=== PATIENT | female | born 1965 | race Caucasian/White ===

== ENCOUNTER 2019-07-24 18:28 | Emergency (ER) | payer OTHER ==
[~2019-07-24] VITALS: Ht 172.7 cm; Wt 99.8 kg
--- OUTSIDE RECORDS SUMMARY | 2019-07-24 18:30 | XMS REPORT | Clinical Summary ---
Author Author [place] [facility] Organization [facility] [place] [facility] Address Unknown Phone Unavailable Care Team Providers Care Fountain Jerk Name Role Phone Theodore Avery MD PCP Allergies Comments Active Allergy Reactions Severity Noted Date Cefuroxime Axetil GI High 02/10/2019 Intolerance Tetracycline 08/18/2018 Medications End Date Status Medication Sig Dispensed Refills Start Date Active thyroid, pork, (ARMOUR Take 120 mg 0 THYROID) 120 mg tablet by mouth daily. Active citalopram (CeleXA) 40 MG Take 40 mg by 0 tablet mouth daily. Active rosuvastatin (CRESTOR) 10 Take 10 mg by 0 MG tablet mouth daily. Active ALPRAZolam (XANAX) 0.5 MG Take 0.5 mg 0 tablet by mouth nightly as needed for anxiety. Active budesonide-formoterol Inhale 2 0 (SYMBICORT) 160-4.5 puffs 2 (two) mcg/actuation inhaler times a day as needed. Active carisoprodol (SOMA) 350 Take 350 mg 0 MG tablet by mouth 4 (four) times a day as needed for muscle spasms. Active HYDROcodone-acetaminophen Take 1 tablet 0 (NORCO) 10-325 mg per by mouth tablet every 6 (six) hours as needed for moderate pain. Active Problems Problem Noted Date Small bowel obstruction 02/10/2019 Encounters Care Team Description Date Type Specialty 06/12/2019 Emergency Emergency Medicine Theodore Avery MD Screening for malignant neoplasm of breast (Primary Dx); Asymptomatic menopausal state 03/25/2019 Transcribe Access Orders Rachana Parkinson MD Abouelseoud, Tanseem Hamad Mohamed A, MD Bavare, Arusha Amod, MD Small bowel obstruction (HCC) (Primary Dx) 02/10/2019 [facility] General Internal Medicine - Encounter 02/13/2019 Anand Beckwith PA-C 08/18/2018 Hospital Radiology Encounter Anand Beckwith PA-C Chronic low back pain without sciatica, unspecified back pain laterality (Primary Dx); Degeneration of intervertebral disc of lumbar region; Spondylolisthesis of lumbar region 08/18/2018 Office Visit Orthopedic Surgery after 07/23/2018 Social History Date Tobacco Use Types Packs/Day Years Used Never Smoker Smokeless Tobacco: Never Used Drinks/Week oz/Week Comments Alcohol Use No Sex Assigned at Date Recorded Not on file Industry Job Start Date Occupation Not on file Not on file Not on file Travel End Travel History Travel Start No recent travel history available. Last Filed Vital Signs Reading Time Taken Comments Vital Sign 122/73 06/12/2019 5:37 PM CDT Blood Pressure 96 06/12/2019 5:37 PM CDT Pulse 36.6 C (97.8 F) 06/12/2019 5:37 PM CDT Temperature 18 06/12/2019 5:37 PM CDT Respiratory Rate 97% 06/12/2019 5:37 PM CDT Oxygen Saturation - - Inhaled Oxygen Concentration 113 kg (250 lb) 02/10/2019 12:52 AM CDT Weight 170.2 cm (5' 7") 06/12/2019 5:37 PM CDT Height 39.16 02/10/2019 12:52 AM CDT Body Mass Index Plan of Treatment Health Maintenance Due Date Last Done Comments CERVICAL CANCER SCREENING 1986 COLONOSCOPY SCREENING 2015 SHINGLES VACCINES (#1) 2015 INFLUENZA VACCINE 06/10/2019 BREAST CANCER SCREENING 03/26/2021 03/26/2019, 01/03/2017, 03/28/2015, Additional history exists Procedures Comments Procedure Name Priority Date/Time Associated Diagnosis MAMMO SCREENING W CAD Routine 03/26/2019 Screening for malignant BILATERAL 9:30 AM CDT neoplasm of breast Asymptomatic menopausal state BONE DENSITY Routine 03/26/2019 Screening for malignant 9:05 AM CDT neoplasm of breast Asymptomatic menopausal state FL UGI W AIR HD BA AND STAT 02/12/2019 SMALL BOWEL 1:46 PM CDT ESTIMATED GFR Routine 02/12/2019 5:22 AM CDT HC COMPLETE BLD COUNT Routine 02/12/2019 W/AUTO DIFF 5:22 AM CDT BASIC METABOLIC PANEL Routine 02/12/2019 5:22 AM CDT XR ABDOMEN ACUTE INC Routine 02/11/2019 CHEST 12:11 PM CDT ESTIMATED GFR Routine 02/11/2019 6:31 AM CDT PHOSPHORUS LEVEL Routine 02/11/2019 6:31 AM CDT MAGNESIUM LEVEL Routine 02/11/2019 6:31 AM CDT BASIC METABOLIC PANEL Routine 02/11/2019 6:31 AM CDT HC COMPLETE BLD COUNT Routine 02/11/2019 W/AUTO DIFF 6:31 AM CDT XR CHEST 1 VW PORTABLE STAT 02/10/2019 4:31 AM CDT HCG QUALITATIVE, URINE STAT 02/10/2019 SCREEN 2:53 AM CDT URINALYSIS SCREEN AND STAT 02/10/2019 MICROSCOPY, WITH REFLEX 2:53 AM CDT TO CULTURE URINE CULTURE STAT 02/10/2019 2:[address] ABDOMEN PELVIS W STAT 02/10/2019 CONTRAST 2:25 AM CDT ESTIMATED GFR STAT 02/10/2019 1:07 AM CDT LIPASE LEVEL STAT 02/10/2019 1:07 AM CDT COMPREHENSIVE METABOLIC STAT 02/10/2019 PANEL 1:07 AM CDT HC COMPLETE BLD COUNT STAT 02/10/2019 W/AUTO DIFF 1:07 AM CDT HEMOGLOBIN A1C Timed 02/10/2019 1:03 AM CDT after 07/23/2018 Results * Mammo Screening w Cad Bilateral (03/26/2019 9:30 AM CDT) Specimen Narrative Performed At PROCEDURE: MAMMO SCREENING W CAD BILATERAL [facility] Computer aided detection was utilized for the interpretation. COMPARISON: Prior studies dating back to 03/28/2015 DENSITY: There are scattered fibroglandular tissue. There is no evidence of new masses, architectural distortions or grouped calcifications. IMPRESSION:There is no evidence of malignancy. RECOMMENDATION: Annual mammography and correlation with physical examination BI-RADS 1: NEGATIVE [id number] Performing Organization Address City/State/Zipcode Phone Number [facility] [address] [place] [address] * Bone Density (03/26/2019 9:05 AM CDT) Specimen Narrative Performed At EXAMINATION:BONE DENSITY [facility] CLINICAL HISTORY:Z12.31 Encounter for screening mammogram for malignant neoplasm of breast, Z78.0 Asymptomatic menopausal state, ASYMPTOMATIC MENOPAUSAL STATE COMPARISON:None. The results of this study expressed as bone mineral density (BMD) were as follows: AP spine (L1-L4) BMD: 1.205 g/cm2 T-Score: 0.1 Dual Femur (Total Mean): BMD: 1.021 g/cm2 T-Score: 0.1 Impression: Bone mineral density values as above. [id number] A copy of this scans including a report detailing these results will follow. Note: The world health organization (WHO) has classified the patient's T-score as follows: Above (-1) as normal (-1) to (-2.5) as low (osteopenia) Below (-2.5) as abnormally low (osteoporosis, increased fracture risk) Dual femur FRAX: Risk factors: Family history of hip fracture. History of fracture as an adult 10 year probability of fracture: 1.Major osteoporotic: 17.2% 2.Hip:0.5% 3.Based on dual femur right) neck BMD [id number] Procedure Note Interface, Radiology Results Incoming - 03/26/2019 10:04 AM CDT EXAMINATION: BONE DENSITY CLINICAL HISTORY: Z12.31 Encounter for screening mammogram for malignant neoplasm of breast, Z78.0 Asymptomatic menopausal state, ASYMPTOMATIC MENOPAUSAL STATE COMPARISON: None. The results of this study expressed as bone mineral density (BMD) were as follows: AP spine (L1-L4) BMD: 1.205 g/cm2 T-Score: 0.1 Dual Femur (Total Mean): BMD: 1.021 g/cm2 T-Score: 0.1 Impression: Bone mineral density values as above. [id number] A copy of this scans including a report detailing these results will follow. Note: The world health organization (WHO) has classified the patient's T-score as follows: Above (-1) as normal (-1) to (-2.5) as low (osteopenia) Below (-2.5) as abnormally low (osteoporosis, increased fracture risk) Dual femur FRAX: Risk factors: Family history of hip fracture. History of fracture as an adult 10 year probability of fracture: 1. Major osteoporotic: 17.2% 2. Hip:0.5% 3. Based on dual femur right) neck BMD [facility]-[id number] Performing Organization Address City/State/Zipcode Phone Number [facility] [address] [place] [address] * FL UGI w Air HD BA and Small Bowel (02/12/2019 1:46 PM CDT) Specimen Narrative Performed At [facility] EXAMINATION:FL UGI W AIR HD BA AND SMALL BOWEL CLINICAL HISTORY:small bowel obstruction COMPARISON:CT from 02/10/2019 TECHNIQUE:UPPER GI SERIES AND SMALL BOWEL FOLLOW-THROUGH was performed with dilute Gastrografin FLUOROSCOPIC TIME:2.3 minutes NUMBER OF IMAGES: 23 FINDINGS: 1.Esophagus:Limited evaluation. Contrast is administered through the existing NG tube. 2.Gastroesophageal junction:Within normal limits 3.Stomach:Normally distensible and demonstrates normal contours and mucosal pattern. 4.Duodenum:Bulb and sweep are normal. The duodenal-jejunal junction is in the normal expected position. 5.Small bowel follow-through:Small bowel loops are normal in caliber and distribution. Spot compression views of the terminal ileum are normal. Transit time was normal. No small bowel obstruction. IMPRESSION: No bowel obstruction. Contrast is noted within the right colon at 45 minutes. [id number] Procedure Note Interface, Radiology Results Incoming - 02/12/2019 1:57 PM CDT EXAMINATION: FL UGI W AIR HD BA AND SMALL BOWEL CLINICAL HISTORY: small bowel obstruction COMPARISON: CT from 02/10/2019 TECHNIQUE: UPPER GI SERIES AND SMALL BOWEL FOLLOW-THROUGH was performed with dilute Gastrografin FLUOROSCOPIC TIME: 2.3 minutes NUMBER OF IMAGES: 23 FINDINGS: 1. Esophagus: Limited evaluation. Contrast is administered through the existing NG tube. 2. Gastroesophageal junction: Within normal limits 3. Stomach: Normally distensible and demonstrates normal contours and mucosal pattern. 4. Duodenum: Bulb and sweep are normal. The duodenal-jejunal junction is in the normal expected position. 5. Small bowel follow-through: Small bowel loops are normal in caliber and distribution. Spot compression views of the terminal ileum are normal. Transit time was normal. No small bowel obstruction. IMPRESSION: No bowel obstruction. Contrast is noted within the right colon at [address] [id number] Performing Organization Address City/[facility]/Zipcode Phone Number [facility] [address] [place] [address] * Estimated GFR (02/12/2019 5:22 AM CDT) Only the most recent of 3 results within the time period is included. Pathologist [facility] Estimated GFR >=90 mL/min/1.73 m2 [facility] Comment: [facility] G1 >=90 Normal or high G2 60-89Mildly decreased [id number] Mildly to moderately decreased [id number] Moderately to severely decreased G4 15-29Severely decreased G5 <15Kidney failure The eGFR was calculated using the Chronic Kidney Disease Epidemiology Collaboration (CKD-EPI) equation. Interpretation is based on recommendations of the National Kidney Foundation-Kidney Disease Outcomes Quality Initiative (NKF-KDOQI) published in 2014. Specimen Plasma specimen Performing Organization Address City/[facility]/Zipcode Phone Number [facility] DEPARTMENT OF [address] [facility] [facility] [place] [address] PATHOLOGY AND GENOMIC MEDICINE [facility] [address] [facility] [address] * CBC with platelet and differential (02/12/2019 5:22 AM CDT) Only the most recent of 3 results within the time period is included. Pathologist [facility] WBC 5.8 4.2 - 11.0 k/uL [facility] RBC 4.25 4.04 - 5.86 m/uL [facility] HGB 12.9 11.5 - 15.3 g/dL [facility] HCT 40.5 34.0 - 45.0 % [facility] MCV 95.3 80.0 - 98.0 fL [facility] MCH 30.4 27.0 - 34.0 pg [facility] MCHC 31.9 31.5 - 36.5 g/dL [facility] RDW - SD 48.1 37.0 - 51.0 fL [facility] MPV 10.5 (H) 7.4 - 10.4 fL [facility] Platelet count 214 150 - 400 k/uL [facility] Nucleated RBC 0.00 /100 WBC [facility] Neutrophils 40.2 36.0 - 66.0 % [facility] Lymphocytes 44.6 (H) 24.0 - 44.0 % [facility] Monocytes 9.4 (H) 0.0 - 6.0 % [facility] Eosinophils 4.7 0.0 - 6.0 % [facility] Basophils 0.9 0.0 - 1.2 % [facility] Immature 0.2 0.0 - 1.0 % [facility] granulocytes [facility] Specimen Blood Performing Organization Address City/State/Zipcode Phone Number [facility] DEPARTMENT OF [facility] [place] [id number] PATHOLOGY AND GENOMIC MEDICINE [address] * Basic metabolic panel (02/12/2019 5:22 AM CDT) Only the most recent of 2 results within the time period is included. Sodium 143 135 - 150 mEq/L [facility] Potassium 3.9 3.5 - 5.0 mEq/L [facility] Chloride 108 98 - 112 mEq/L [facility] CO2 27 24 - 31 mmol/L [facility] Anion gap 8@ANIO 7 - 15 mEq/L [facility] BUN 6 (L) 7 - 18 mg/dL [facility] Creatinine 0.60 0.50 - 0.90 mg/dL [facility] Glucose 120 (H) 65 - 100 mg/dL [facility] Calcium 9.0 8.3 - 10.2 mg/dL [facility] Specimen Plasma specimen Performing Organization Address City/State/Zipcode Phone Number [facility] DEPARTMENT OF [address] [place] [address] PATHOLOGY AND GENOMIC MEDICINE [facility] [address] [place], [place] [id number] [place] [address] * XR Abdomen Acute Inc Chest (02/11/2019 12:11 PM CDT) Specimen Narrative Performed At XR ABDOMEN ACUTE INC CHEST [facility] CLINICAL INDICATION:small bowel obstruction COMPARISON:02/10/2019 IMPRESSION: The lungs are clear. Heart and mediastinal contours are within normal limits. There is no active cardiopulmonary disease. A nasogastric tube is present coursing through the thorax, through the expected gastroesophageal junction, tip to the right of the midline overlying the region of the gastric pylorus. Bowel gas pattern is nonspecific with moderate stool through the colon. There are couple small bowel loops with air-fluid levels in the right lower quadrant suggesting stasis and/or potential focal inflammatory process. No significant differential air-fluid levels are identified to suggest high-grade small bowel obstruction. There is no free intraperitoneal air. No radiopaque calculi. Changes of lumbosacral fusion are noted incidentally. CONCLUSION: Nonspecific bowel gas pattern with mildly prominent fluid and gas in small bowel loops in the right lower quadrant as described. *[id number] Procedure Note Hm Interface, Radiology Results Incoming - 02/11/2019 12:48 PM CDT XR ABDOMEN ACUTE INC CHEST CLINICAL INDICATION: small bowel obstruction COMPARISON: 02/10/2019 IMPRESSION: The lungs are clear. Heart and mediastinal contours are within normal limits. There is no active cardiopulmonary disease. A nasogastric tube is present coursing through the thorax, through the expected gastroesophageal junction, tip to the right of the midline overlying the region of the gastric pylorus. Bowel gas pattern is nonspecific with moderate stool through the colon. There are couple small bowel loops with air-fluid levels in the right lower quadrant suggesting stasis and/or potential focal inflammatory process. No significant differential air-fluid levels are identified to suggest high-grade small bowel obstruction. There is no free intraperitoneal air. No radiopaque calculi. Changes of lumbosacral fusion are noted incidentally. CONCLUSION: Nonspecific bowel gas pattern with mildly prominent fluid and gas in small bowel loops in the right lower quadrant as described. *[id number] Performing Organization Address City/State/Zipcode Phone Number [facility] [address] [place] [address] * Phosphorus level (02/11/2019 6:31 AM CDT) Phosphorus 3.0 2.4 - 4.5 mg/dL [facility] Specimen Plasma specimen Performing Organization Address City/[facility]/Zipcode Phone Number [facility] DEPARTMENT OF [address] [place] [address] PATHOLOGY AND GENOMIC MEDICINE [address] * Magnesium level (02/11/2019 6:31 AM CDT) Magnesium 2.00 1.60 - 2.60 mg/dL [facility] Specimen Plasma specimen Performing Organization Address [facility] Phone Number [facility] DEPARTMENT OF [address] [place] [address] PATHOLOGY AND GENOMIC MEDICINE [address] * XR Chest 1 Vw Portable (02/10/2019 4:31 AM CDT) Specimen Narrative Performed At Examination:XR CHEST 1 VW PORTABLE [facility] Clinical History:Nasogastric tube placement Comparison: None. Technique: Single frontal view of the chest is obtained. Findings: Low lung volume with vascular crowding or congestion is noted. Tip NG tube is at the fundus near the cardia of the stomach. No pneumothorax is seen. The heart size is normal. No pleural effusion is seen. Impression: Low lung volume with vascular crowding or congestion. [facility]-[id number] Procedure Note Interface, Radiology Results Incoming - 02/10/2019 4:39 AM CDT Examination: XR CHEST 1 VW PORTABLE Clinical History: Nasogastric tube placement Comparison: None. Technique: Single frontal view of the chest is obtained. Findings: Low lung volume with vascular crowding or congestion is noted. Tip NG tube is at the fundus near the cardia of the stomach. No pneumothorax is seen. The heart size is normal. No pleural effusion is seen. Impression: Low lung volume with vascular crowding or congestion. [id number] Performing Organization Address City/State/Zipcode Phone Number [facility] [address] [place] [address] * Urinalysis screen and microscopy, with reflex to culture (02/10/2019 2:53 AM CDT) Specimen site Clean catch [facility] Color, UA Colorless [facility] Appearance, UA Clear [facility] Specific 1.024 1.001 - 1.035 [facility] gravity, [facility] pH, UA 9.0 (H) 5.0 - 8.5 [facility] Protein, UA Negative Negative [facility] Glucose, UA Negative Negative [facility] Ketones, UA Negative Negative [facility] Bilirubin, UA Negative Negative [facility] Blood, UA Negative Negative [facility] Nitrite, UA Negative Negative [facility] Urobilinogen, Negative <2.0 [facility] Leukocyte Negative Negative [facility] esterase, [facility] WBC, UA <1 0 - 5 /HPF [facility] RBC, UA None seen 0 - 5 /HPF [facility] Bacteria, UA None seen None seen [facility] Yeast, UA None seen [facility] Yeast with None seen [facility] Specimen Urine Performing Organization Address City/State/Zipcode Phone Number [facility] DEPARTMENT OF [facility] [place] [address] PATHOLOGY AND GENOMIC MEDICINE [place] [id number] [place], [place] [id number] [place] [address] * hCG qualitative, urine screen (02/10/2019 2:53 AM CDT) hCG Negative Negative [facility] qualitative, Comment: [facility] urine The manufacturers stated [facility] sensitivity of HcG test for HOSPITAL serum is >/=10 mIU/ml and urine is >/=20mIU/ml. Specimen Urine Performing Organization Address City/[facility]/Zipcode Phone Number [facility] DEPARTMENT OF [address] [place] [id number] PATHOLOGY AND GENOMIC MEDICINE [facility] [address] * Urine culture (02/10/2019 2:53 AM CDT) Urine culture SEE COMMENTComment: [facility] Bacteriuria screen negative. [facility] Specimen Urine Performing Organization Address City/[facility] Phone Number [facility] DEPARTMENT OF [address] [place] [id number] PATHOLOGY AND GENOMIC MEDICINE [facility] [address] * CT Abdomen Pelvis W Contrast (02/10/2019 2:25 AM CDT) Specimen Narrative Performed At Examination:CT ABDOMEN PELVIS W CONTRAST [facility] Clinical History: periumbilical painrule out small bowel obstruction Comparison: None. Findings: CT scans are performed using radiation dose reduction techniques.Technical factors are evaluated and adjusted to ensure appropriate moderation of exposure.Automated dose management technology is applied to adjust radiation exposure while achieving a diagnostic quality image. CT imaging was performed with iterative reconstruction techniques and/or automated exposure control to reduce radiation dose. CT scan of the abdomen and pelvis was performed after intravenous contrast. The liver, spleen, pancreas, gallbladder, and adrenal glands are unremarkable. The kidneys are within normal limits without hydronephrosis. Mildly prominent fluid-filled loops of small bowel are noted but measure only up to 2.3 cm. However the distal small bowel loops are decompressed. Transition point is in the pelvis at the mid to distal small bowel. Scattered colonic diverticuli are noted. No bowel thickening or fat stranding is seen. The appendix is visualized and unremarkable. No free air or is seen. Trace free fluid is noted in the pelvis. Urinary bladder is unremarkable. Small amount of subcutaneous fluid and fat stranding is seen posterior to the spine from the level of L3-L5. Bilateral pedicular screws are noted at L5 and S1. IMPRESSION: 1. Mildly prominent fluid-filled loops of small bowel but measures only up to 2.3 cm. However the distal small bowel loops are decompressed with transition point in the pelvis. This may represent early or partial small bowel obstruction. Follow-up study is recommended. 2. Small amount of subcutaneous fluid and fat stranding posterior to the spine from the level of L3-L5. This may related to postsurgical change. Superimposed infection cannot be excluded. Clinical correlation is recommended. [id number] Procedure Note Hm Interface, Radiology Results Incoming - 02/10/2019 2:35 AM CDT Examination: CT ABDOMEN PELVIS W CONTRAST Clinical History: periumbilical pain rule out small bowel obstruction Comparison: None. Findings: CT scans are performed using radiation dose reduction techniques. Technical factors are evaluated and adjusted to ensure appropriate moderation of exposure. Automated dose management technology is applied to adjust radiation exposure while achieving a diagnostic quality image. CT imaging was performed with iterative reconstruction techniques and/or automated exposure control to reduce radiation dose. CT scan of the abdomen and pelvis was performed after intravenous contrast. The liver, spleen, pancreas, gallbladder, and adrenal glands are unremarkable. The kidneys are within normal limits without hydronephrosis. Mildly prominent fluid-filled loops of small bowel are noted but measure only up to 2.3 cm. However the distal small bowel loops are decompressed. Transition point is in the pelvis at the mid to distal small bowel. Scattered colonic diverticuli are noted. No bowel thickening or fat stranding is seen. The appendix is visualized and unremarkable. No free air or is seen. Trace free fluid is noted in the pelvis. Urinary bladder is unremarkable. Small amount of subcutaneous fluid and fat stranding is seen posterior to the spine from the level of L3-L5. Bilateral pedicular screws are noted at L5 and S1. IMPRESSION: 1. Mildly prominent fluid-filled loops of small bowel but measures only up to 2.3 cm. However the distal small bowel loops are decompressed with transition point in the pelvis. This may represent early or partial small bowel obstruction. Follow-up study is recommended. 2. Small amount of subcutaneous fluid and fat stranding posterior to the spine from the level of L3-L5. This may related to postsurgical change. Superimposed infection cannot be excluded. Clinical correlation is recommended. [id number] Performing Organization Address City/State/Zipcode Phone Number [facility] [address] [place] [address] * Lipase level (02/10/2019 1:07 AM CDT) Lipase 13 13 - 60 U/L [facility] Specimen Plasma specimen Performing Organization Address City/State/Zipcode Phone Number [facility] [facility] DEPARTMENT OF [address] [place] [address] PATHOLOGY AND GENOMIC MED[facility] [address] * Comprehensive metabolic panel (02/10/2019 1:07 AM CDT) Sodium 138 135 - 150 mEq/L [facility] Potassium 4.1 3.5 - 5.0 mEq/L [facility] Chloride 102 98 - 112 mEq/L [facility] CO2 24 24 - 31 mmol/L [facility] Anion gap 12@ANIO 7 - 15 mEq/L [facility] BUN 10 7 - 18 mg/dL [facility] Creatinine 0.60 0.50 - 0.90 mg/dL [facility] Glucose 168 (H) 65 - 100 mg/dL [facility] Calcium 9.5 8.3 - 10.2 mg/dL [facility] Protein 7.2 6.3 - 8.3 g/dL [facility] Albumin 3.9 3.5 - 5.0 g/dL [facility] A/G ratio 1.2 0.7 - 3.8 [facility] Alkaline 67 0 - 104 U/L [facility] phosphatase [facility] AST 17 10 - 35 U/L [facility] ALT 14 5 - 50 U/L [facility] Total bilirubin 0.5 0.2 - 1.2 mg/dL [facility] Specimen Plasma specimen Performing Organization Address City/[facility]/Zipcode Phone Number [facility] DEPARTMENT OF [address] [place] [address] PATHOLOGY AND GENOMIC MEDICINE [facility] [address] * Hemoglobin A1c (02/10/2019 1:03 AM CDT) Hemoglobin A1C 5.7 (H) 4.0 - 5.6 % [facility] Comment: [facility] HbA1c cutoffs for diagnosing [facility] diabetes: HOSPITAL 4.0% - 5.6%=normal 5.7% - 6.4%=increased risk for diabetes (prediabetes) >=6.5%=diabetes Goals for glycemic control (ADA 2016) < 7.0%Target for non adults with diabetes. More or less stringent targets may be appropriate for individual patients. <7.5% Target for Children and adolescents with type 1 diabetes. Specimen Blood Performing Organization Address City/State/Zipcode Phone Number [facility] DEPARTMENT OF [address] [place] [address] PATHOLOGY AND GENOMIC MEDICINE [facility] [address] [place], [place] [id number] [place] [address] after 07/23/2018 Insurance Type Payer Benefit Subscriber ID Effective Phone Address Plan / Dates Group HMO AETNA AETNA xxxxxxxxxx 2018 HMO,POS,EP -Present O, MC/EC Advance Directives For more information, please contact: [phone] Patient Airconditioning Engineer Explanation Type Date Recorded Advance Directives, 02/10/2019 1:56 AM Living Will and Medical Power of Call Worker poa 02/12/19 Advance Directives, 02/15/2019 2:42 PM Living Will and Medical Power of Call Worker
--- OUTSIDE RECORDS SUMMARY | 2019-07-24 18:31 | XMS REPORT | Clinical Summary ---
Author Author MAGGIE [facility] Organization [facility] Address Unknown Phone Unavailable Care Team Providers Care Production Bow Maker Name Role Phone GenaJeovanyanalia Baptiste PCP Allergies Comments Active Allergy Reactions Severity Noted Date Cephalexin Hives Low 12/31/2018 "feels hot" Tetracycline Nausea Only, High 08/18/2018 Other (See Comments) Medications End Date Status Medication Sig Dispensed Refills Start Date Active ALPRAZolam (XANAX) 0.5 MG Take 0.5 mg 0 tablet by mouth every night as needed for Anxiety. Active citalopram (CELEXA) 40 MG Take 40 mg by 0 tablet mouth daily. Active cyclobenzaprine Take 10 mg by 0 (FLEXERIL) 10 MG tablet mouth nightly. Active dextroamphetamine-ampheta Take 25 mg by 0 mine (ADDERALL XR) 25 MG mouth every 24 hr capsule morning. Active esomeprazole (NEXIUM) 40 Take 40 mg by 0 MG capsule mouth daily. Active KRILL OIL ORAL Take by mouth 0 daily. Active LEVALBUTEROL HCL INHL Inhale 2 0 puffs by mouth via inhaler 4 (four) times daily as needed. Active mometasone (NASONEX) 50 2 sprays by 0 mcg/actuation nasal spray Nasal route daily. Active thyroid, pork, 120 mg Tab Take by mouth 0 daily. Active progesterone (PROMETRIUM) Take 100 mg 0 100 MG capsule by mouth nightly. Active rizatriptan (MAXALT) 10 Take 10 mg by 0 MG tablet mouth once as needed for Headaches Do NOT exceed thirty (30) mg in 24 hours. . Active rosuvastatin (CRESTOR) 10 Take 10 mg by 0 MG tablet mouth daily. Active budesonide-formoterol Inhale 2 0 (SYMBICORT) 160-4.5 puffs by mcg/actuation inhaler mouth via inhaler 2 (two) times daily. Active cholecalciferol, vitamin Take 5,000 0 D3, 5,000 unit Tab Units by mouth daily. Active cyanocobalamin (VITAMIN Take 5 30 tablet 1 B-12) 100 MCG tablet tablets (500 9 mcg total) by mouth daily. 06/13/2019 Discontinued celecoxib (CELEBREX) 200 Take 200 mg 0 MG capsule by mouth daily. 12/12/2018 Discontinued HYDROcodone-acetaminophen Take 1 tablet 0 (NORCO 10-325) 10-325 mg by mouth per tablet every 6 (six) hours as needed for Pain. 06/13/2019 Discontinued sucralfate (CARAFATE) 1 Take 1 g by 0 gram tablet mouth 4 (four) times daily. 12/22/2018 HYDROcodone-acetaminophen Take 1 tablet 30 tablet 0 (NORCO 10-325) 10-325 mg by mouth 9 per tablet every 6 (six) hours as needed for Pain for up to 10 days. Max Daily Amount: 4 tablets 01/02/2019 Discontinued HYDROcodone-acetaminophen Take 1 tablet 30 tablet 0 (NORCO 10-325) 10-325 mg by mouth 9 per tablet every 6 (six) hours as needed for Pain. Max Daily Amount: 4 tablets 06/15/2019 Discontinued carisoprodol (SOMA) 350 Take 350 mg 0 MG tablet by mouth 4 (four) times daily as needed for Muscle spasms. 01/12/2019 docusate sodium (COLACE) Take 1 20 capsule 0 100 MG capsule capsule (100 9 mg total) by mouth 2 (two) times daily for 10 days. 01/12/2019 levoFLOXacin (LEVAQUIN) Take 1.5 15 tablet 0 500 MG tablet tablets (750 9 mg total) by mouth daily for 10 days. Active Problems Problem Noted Date Leukocytosis 06/12/2019 Syncope 06/12/2019 Lower abdominal pain 06/12/2019 Colitis 06/12/2019 Morbid obesity with BMI of 40.0-44.9, adult 01/01/2019 Wound infection after surgery 12/31/2018 Wound dehiscence 12/31/2018 Lumbar spondylolysis 12/08/2018 Spondylolisthesis, grade 2 12/08/2018 Lumbar radiculopathy 12/08/2018 Morbid obesity with BMI of 40.0-44.9, adult 12/08/2018 S/P lumbar discectomy 12/08/2018 Resolved Problems Problem Noted Date Resolved Date Pre-op testing 12/08/2018 12/08/2018 Encounters Care Team Description Date Type Specialty Akosua Hassan, JR 06/15/2019 Anesthesia Gastroenterology Event Dre Saucedo MD COLONOSCOPY,BIOPSY 06/15/2019 Surgery Gastroenterology 06/13/2019 Travel Haley oBnner MD Arif, Sahar, MD Adio, MD Cristina Titus Shireen, MD Lower abdominal pain (Primary Dx); Fever, unspecified fever cause; LLQ abdominal pain; Syncope, unspecified syncope type; Acute colitis; Leukocytosis, unspecified type; Other elevated white blood cell (WBC) count; Bloody diarrhea; Colitis; Ischemic colitis (HCC) 06/12/2019 [facility] General Internal Medicine - Encounter 06/15/2019 06/12/2019 Orders Only General Internal Medicine [facility] MD S/P lumbar fusion 04/26/2019 Hospital Radiology Encounter [facility] MD S/P lumbar fusion (Primary Dx) 04/22/2019 Outside Orders Central Scheduling IgzoeaSarah Chinedum, [employer] S/P lumbar fusion 03/01/2019 Hospital Radiology Encounter IgwalaSarah Chinedum, [employer] S/P lumbar fusion (Primary Dx) 03/01/2019 Outside Orders Central Scheduling Aviva Redmond, JR 01/01/[address] MD DEBRIDEMENT/I&D,SPINE 01/01/[address] MD 12/31/2018 [facility] General Internal Medicine - Encounter 01/03/2019 12/31/2018 Travel Sarah Samum, [employer] Lumbar radiculopathy; Arthrodesis status 12/25/2018 Hospital Radiology Encounter IgzoeaSarahum, [employer] Lumbar radiculopathy (Primary Dx); Arthrodesis status 12/24/2018 Outside Orders Central Scheduling [facility] MD LAMINECTOMY,LUMBAR W/INTERNAL FIXATION 12/08/2018 Surgery Piyush Patino MD 12/08/[address] MD Pre-op testing 12/08/2018 [facility] General Internal Medicine - Encounter 12/12/[address] MD 11/26/2018 Hospital Cardiology Encounter [facility] MD Spondylolysis, lumbar region; Pre-op testing 11/26/2018 Hospital Pre-Admission Testing Encounter Neto Ellis MD 11/26/[address] MD Pre-op testing (Primary Dx); Spondylolysis, lumbar region 11/18/2018 Orders Only Family Medicine after 07/23/2018 Social History Date Tobacco Use Types Packs/Day Years Used Never Smoker Smokeless Tobacco: Never Used Alcohol Use Drinks/Week oz/Week Comments No Alcohol Habits Answer Date Recorded How often do you have a drink containing alcohol? Never 11/26/2018 How many drinks containing alcohol do you have on Not asked a typical day when you are drinking? How often do you have six or more drinks on one Not asked occasion? Sex Assigned at Date Recorded Not on file Industry Job Start Date Occupation Not on file Not on file Not on file Travel End Travel History Travel Start No recent travel history available. Last Filed Vital Signs Time Taken Vital Sign Reading 06/15/2019 12:10 PM CDT Blood Pressure 102/54 06/15/2019 12:10 PM CDT Pulse 77 06/15/2019 12:10 PM CDT Temperature 36.1 C (96.9 F) 06/15/2019 12:10 PM CDT Respiratory Rate 18 06/15/2019 12:10 PM CDT Oxygen Saturation 100% - Inhaled Oxygen - Concentration 06/12/2019 6:18 PM CDT Weight 107.5 kg (237 lb) 06/12/2019 6:18 PM CDT Height 170.2 cm (5' 7") 06/12/2019 6:18 PM CDT Body Mass Index 37.12 Plan of Treatment Not on file Implants Device Identifier Shelf Expiration Date Model / Serial / Lot Implanted Type Area Manufactur er 02/18/2020 8103.0210S / / [id number] Putty Xemplifi Dbm + 10cc Bone N/A: Spine GLOBUS MED [id number] - [id number] Lumbar Implanted: Qty: 1 on 12/08/[address] MD [id number] / / Scr Creo Thd 7.5x42mm 5119.1742 - Spine N/A: Spine GLOBUS MED [id number] Lumbar Implanted: Qty: 2 on 12/08/[address] MD [id number] / / Scr Creo Thd 7.5x45mm 5119.1747 - Spine N/A: Spine GLOBUS MED [id number] Lumbar Implanted: Qty: 2 on 12/08/[address] MD 1119.0010 / / Cap Creo Amp Kiko Threaded 1119.0010 Spine N/A: Spine GLOBUS MED - [id number] Lumbar Implanted: Qty: 4 on 12/08/[address] MD 193.121 / / Spacer Rise Bundle Wrapper 10x22 193.121 Spine N/A: Spine GLOBUS MED - [id number] Lumbar Implanted: Qty: 2 on 12/08/[address] MD [id number] / / 35mm Cocr Huy N/A: Spine GLOBUS Implanted: Qty: 2 on 12/08/[address]ICAL [address] MD Procedures Comments Procedure Name Priority Date/Time Associated Diagnosis REPORT OF PROCEDURE - 06/21/2019 ENDOSCOPY SCAN 12:58 PM CDT RHYTHM STRIP - SCAN 06/17/2019 2:55 PM CDT RHYTHM STRIP - SCAN 06/16/2019 11:00 AM CDT CBC W/PLT COUNT & AUTO STAT 06/15/2019 DIFFERENTIAL 11:21 AM CDT CBC W/PLT COUNT & AUTO STAT 06/15/2019 DIFFERENTIAL 11:21 AM CDT REPORT OF PROCEDURE - 06/15/2019 ENDOSCOPY URL 10:55 AM CDT TISSUE EXAM AP Routine 06/15/2019 10:47 AM CDT COLONOSCOPY,BIOPSY 06/15/2019 Gastrointestinal 10:00 AM CDT hemorrhage, unspecified gastrointestinal hemorrhage type PROTHROMBIN TIME/INR STAT 06/15/2019 8:18 AM CDT BASIC METABOLIC PANEL (7) STAT 06/15/2019 8:18 AM CDT CBC W/PLT COUNT & AUTO Routine 06/14/2019 DIFFERENTIAL 3:31 AM CDT BASIC METABOLIC PANEL (7) Routine 06/14/2019 3:31 AM CDT CBC W/PLT COUNT & AUTO Routine 06/14/2019 DIFFERENTIAL 3:31 AM CDT C-REACTIVE PROTEIN Routine 06/14/2019 3:31 AM CDT STOOL PATH CHARGE Routine 06/13/2019 9:39 AM CDT SHIGA TOXIN SCREEN Routine 06/13/2019 9:39 AM CDT C. DIFFICILE GDH TOXIN Routine 06/13/2019 9:39 AM CDT STOOL CULTURE + SHIGA Routine 06/13/2019 TOXIN 9:39 AM CDT VITAMIN B12 AND FOLATE Routine 06/13/2019 5:01 AM CDT TSH/FREE T4 IF INDICATED Routine 06/13/2019 5:01 AM CDT COMPREHENSIVE METABOLIC Routine 06/13/2019 PANEL 5:01 AM CDT CBC (HEMOGRAM ONLY) Routine 06/13/2019 5:01 AM CDT CREATINE KINASE (CK) STAT 06/12/2019 11:50 PM CDT TROPONIN I STAT 06/12/2019 11:[address] ABDOMEN/PELVIS WITH IV STAT 06/12/2019 CONTRAST 10:02 PM CDT URINALYSIS W/ REFLEX STAT 06/12/2019 URINE CULTURE 9:40 PM CDT POCT-LACTIC ACID, VENOUS Routine 06/12/2019 7:11 PM CDT ECG 12-LEAD Routine 06/12/2019 7:09 PM CDT Procedure Note - Interface, External Ris In - 06/12/2019 8:32 PM CDT Ventricula r Rate 73 BPM Atrial Rate 73 BPM P-R Interval 108 ms QRS Duration 72 ms Q-T Interval 426 ms QTC Calculatio n(Bazett) 469 ms P Frederick -4 degrees R Frederick 8 degrees T Frederick 13 degrees Sinus rhythm with short AL Minimal voltage criteria for LVH, may be normal variant Borderline ECG No previous ECGs available ECG 12-LEAD STAT 06/12/2019 7:09 PM CDT BLOOD GAS, VENOUS STAT 06/12/2019 7:09 PM CDT BLOOD CULTURE STAT 06/12/2019 7:09 PM CDT BLOOD CULTURE STAT 06/12/2019 7:09 PM CDT CBC W/PLT COUNT & AUTO STAT 06/12/2019 DIFFERENTIAL 6:55 PM CDT PT/APTT STAT 06/12/2019 6:55 PM CDT BASIC METABOLIC PANEL (7) STAT 06/12/2019 6:55 PM CDT HEPATIC FUNCTION PANEL STAT 06/12/2019 6:55 PM CDT PHOSPHORUS STAT 06/12/2019 6:55 PM CDT MAGNESIUM STAT 06/12/2019 6:55 PM CDT LIPASE STAT 06/12/2019 6:55 PM CDT CBC W/PLT COUNT & AUTO STAT 06/12/2019 DIFFERENTIAL 6:55 PM CDT ED ECG INTERPRETATION Routine 06/12/2019 6:[address] SPINE LUMBAR WITHOUT Routine 04/26/2019 S/P lumbar fusion IV CONTRAST 10:00 AM CDT XR SPINE LUMBER 2 OR 3 Routine 03/01/2019 S/P lumbar fusion VIEWS 10:18 AM CDT CBC W/PLT COUNT & AUTO Routine 01/03/2019 DIFFERENTIAL 6:25 AM DEVIL TENDER BASIC METABOLIC PANEL (7) Routine 01/03/2019 6:25 AM DEVIL TENDER CBC W/PLT COUNT & AUTO Routine 01/03/2019 DIFFERENTIAL 6:25 AM DEVIL TENDER TRANSFUSION SERVICE 01/02/2019 REPORT - SCAN 6:01 PM DEVIL TENDER CBC W/PLT COUNT & AUTO Routine 01/02/2019 DIFFERENTIAL 3:52 AM DEVIL TENDER BASIC METABOLIC PANEL (7) Routine 01/02/2019 3:52 AM DEVIL TENDER CBC W/PLT COUNT & AUTO Routine 01/02/2019 DIFFERENTIAL 3:52 AM DEVIL TENDER TRANSFUSION SERVICE 01/01/2019 REPORT - SCAN 6:01 PM DEVIL TENDER TISSUE EXAM AP Routine 01/01/2019 3:55 PM DEVIL TENDER SURGICALLY OBTAINED Routine 01/01/2019 CULTURE + GRAM STAIN 3:42 PM DEVIL TENDER FUNGUS CULTURE + SMEAR Routine 01/01/2019 3:42 PM DEVIL TENDER ANAEROBIC CULTURE Routine 01/01/2019 3:42 PM DEVIL TENDER AFB CULTURE + SMEAR Routine 01/01/2019 3:42 PM DEVIL TENDER RELEASE,SCAR CONTRACTURE 01/01/2019 Wound dehiscence TRUNK 1:55 PM DEVIL TENDER Case Notes 1 HR Special Needs (PRONE POSITION, MALOU TABLE, PULSE LAVAGE IRRIGATION ) CLOSURE,WOUND TORSO 01/01/2019 Wound dehiscence POSTERIOR 1:55 PM DEVIL TENDER Case Notes 1 HR Special Needs (PRONE POSITION, MALOU TABLE, PULSE LAVAGE IRRIGATION ) DEBRIDEMENT/I&D,SPINE 01/01/2019 Wound dehiscence 1:55 PM DEVIL TENDER Case Notes 1 HR Special Needs (PRONE POSITION, MALOU TABLE, PULSE LAVAGE IRRIGATION ) BLOOD CULTURE Routine 12/31/2018 11:53 PM DEVIL TENDER URINALYSIS W/ REFLEX Routine 12/31/2018 URINE CULTURE 11:12 PM DEVIL TENDER CBC W/PLT COUNT & AUTO YAYA 12/31/2018 DIFFERENTIAL 11:10 PM DEVIL TENDER TYPE AND SCREEN, Routine 12/31/2018 AUTOMATED 11:10 PM DEVIL TENDER C-REACTIVE PROTEIN YAYA 12/31/2018 11:10 PM DEVIL TENDER PT/APTT YAYA 12/31/2018 11:10 PM DEVIL TENDER PHOSPHORUS YAYA 12/31/2018 11:10 PM DEVIL TENDER MAGNESIUM YAYA 12/31/2018 11:10 PM DEVIL TENDER BASIC METABOLIC PANEL (7) YAYA 12/31/2018 11:10 PM DEVIL TENDER CBC W/PLT COUNT & AUTO YAYA 12/31/2018 DIFFERENTIAL 11:10 PM DEVIL TENDER BLOOD CULTURE Routine 12/31/2018 11:[address] SPINE LUMBAR WITHOUT STAT 12/31/2018 IV CONTRAST 9:12 PM DEVIL TENDER RHYTHM STRIP - SCAN 12/28/2018 10:[address] SPINE LUMBAR WITHOUT Routine 12/25/2018 Lumbar radiculopathy IV CONTRAST 8:10 AM DEVIL TENDER Arthrodesis status BASIC METABOLIC PANEL (7) Routine 12/12/2018 5:12 AM DEVIL TENDER CBC W/PLT COUNT & AUTO Routine 12/11/2018 DIFFERENTIAL 5:19 AM DEVIL TENDER BASIC METABOLIC PANEL (7) Routine 12/11/2018 5:19 AM DEVIL TENDER CBC W/PLT COUNT & AUTO Routine 12/11/2018 DIFFERENTIAL 5:19 AM DEVIL TENDER CBC W/PLT COUNT & AUTO Routine 12/10/2018 DIFFERENTIAL 6:17 AM DEVIL TENDER BASIC METABOLIC PANEL (7) Routine 12/10/2018 6:17 AM DEVIL TENDER CBC W/PLT COUNT & AUTO Routine 12/10/2018 DIFFERENTIAL 6:17 AM DEVIL TENDER XR SPINE LUMBER 2 OR 3 Routine 12/09/2018 VIEWS 9:39 PM DEVIL TENDER TRANSFUSION SERVICE 12/09/2018 REPORT - SCAN 5:51 PM DEVIL TENDER CBC (HEMOGRAM ONLY) Routine 12/09/2018 5:09 AM DEVIL TENDER BASIC METABOLIC PANEL (7) Routine 12/09/2018 5:09 AM DEVIL TENDER NEEDLE EMG, 2 EXTREMITY Routine 12/08/2018 3:00 PM DEVIL TENDER FL FOOD SUPERVISOR IN OR 30 Routine 12/08/2018 MINUTE INCREMENTS 2:45 PM DEVIL TENDER TISSUE EXAM AP Routine 12/08/2018 2:11 PM DEVIL TENDER FL FOOD SUPERVISOR IN OR 30 Routine 12/08/2018 MINUTE INCREMENTS 12:43 PM DEVIL TENDER LAMINECTOMY,LUMBAR 12/08/2018 Spondylolysis, lumbar W/INTERNAL FIXATION 11:30 AM DEVIL TENDER region Case Notes 3 HRS PER FAX Special Needs (SUPINE POSITION, C-ARM, FLATTOP TABLE, GLOBUS) PROCEDURE W/ C-ARM 12/08/2018 Spondylolysis, lumbar 11:30 AM DEVIL TENDER region Case Notes 3 HRS PER FAX Special Needs (SUPINE POSITION, C-ARM, FLATTOP TABLE, GLOBUS) URINALYSIS W/ REFLEX Routine 12/08/2018 Pre-op testing URINE CULTURE 10:50 AM DEVIL TENDER ABORH, MANUAL Routine 12/08/2018 10:48 AM DEVIL TENDER CBC W/PLT COUNT & AUTO Routine 12/08/2018 Pre-op testing DIFFERENTIAL 10:40 AM DEVIL TENDER CBC W/PLT COUNT & AUTO Routine 12/08/2018 Pre-op testing DIFFERENTIAL 10:40 AM DEVIL TENDER BASIC METABOLIC PANEL (7) Routine 12/08/2018 Pre-op testing 10:40 AM DEVIL TENDER TRANSFUSION SERVICE 11/27/2018 REPORT - SCAN 5:53 PM DEVIL TENDER XR CHEST 2 VIEWS Routine 11/26/2018 Spondylolysis, lumbar 12:31 PM DEVIL TENDER region TYPE AND SCREEN, Routine 11/26/2018 Pre-op testing AUTOMATED 12:06 PM DEVIL TENDER PROTHROMBIN TIME/INR Routine 11/26/2018 Pre-op testing 12:06 PM DEVIL TENDER APTT Routine 11/26/2018 Pre-op testing 12:06 PM DEVIL TENDER after 07/23/2018 Results * EKG-SCANNED (06/21/2019 12:58 PM CDT) Narrative Performed At * RHYTHM STRIP - SCAN (06/17/2019 2:55 PM CDT) Only the most recent of 3 results within the time period is included. Narrative Performed At * CBC with platelet count + automated diff (06/15/2019 11:21 AM CDT) Only the most recent of 9 results within the time period is included. WBC 7.0 3.5 - 10.5 K/L [facility] RBC 4.46 3.93 - 5.22 M/L [facility] Hemoglobin 13.5 11.2 - 15.7 GM/DL [facility] Hematocrit 42.3 34.1 - 44.9 % [facility] MCV 94.8 79.4 - 94.8 fL [facility] MCH 30.3 25.6 - 32.2 pg [facility] MCHC 31.9 (L) 32.2 - 35.5 GM/DL [facility] RDW 14.6 (H) 11.7 - 14.4 % [facility] Platelets 192 150 - 450 K/CU MM [facility] MPV 10.9 9.4 - 12.3 fL [facility] nRBC 0 0 - 0 /100 WBC [facility] % Neutros 53 % [facility] % Lymphs 32 % [facility] % Monos 9 % [facility] % Eos 5 % [facility] % Baso 1 % [facility] # Neutros 3.71 1.56 - 6.13 K/L [facility] # Lymphs 2.24 1.18 - 3.74 K/L [facility] # Monos 0.64 (H) 0.24 - 0.36 K/L [facility] # Eos 0.37 (H) 0.04 - 0.36 K/L [facility] # Baso 0.05 0.01 - 0.08 K/L [facility] Immature 0 0 - 1 % [facility] Granulocytes-Relative [facility] Specimen Blood Performing Organization Address City/State/Zipcode Phone Number [facility] [address] [place] [address] [facility] * REPORT OF PROCEDURE - ENDOSCOPY URL (06/15/2019 10:55 AM CDT) Narrative Performed At * Tissue Exam (06/15/2019 10:47 AM CDT) Only the most recent of 3 results within the time period is included. Case Report Surgical Pathology [facility] Report [facility] Case: [id number] Authorizing Provider:Dre Saucedo MDCollecte d: 06/15/2019 1047 Ordering Location: [address] Received: 06/16/2019 0829 Service Pathologist: Hodan Pettit MD Specimen:Large Intestine, Colon - Rectosigmoid, biopsy DIAGNOSIS RECTOSIGMOID COLON, BIOPSY: [facility] - CONSISTENT WITH HISTORY [facility] OF ISCHEMIC COLITIS CC/pl Signing Pathologist Direct Phone Line: [phone] CPT Code(s) 94851 [facility] CLINICAL HISTORY Pre and postop diagnosis: [facility] gastrointestinal hemorrhage, [facility] unspecified gastrointestinal hemorrhage type SPECIMEN SOURCE Large intestine, colon - [facility] rectosigmoid biopsy [facility] GROSS DESCRIPTION Received in formalin labeled [facility] with the patient's name, [facility] accession number and "large intestine, colon - rectosigmoid" are two irregular eaton soft tissue fragments measuring 0.3 cm and 0.2 cm which are submitted in toto in A1. CG/pl MICROSCOPIC DESCRIPTION The rectosigmoid colon biopsy [facility] consists of multiple pieces of [facility] colonic mucosa with reactive surface epithelium, wethered glands with focal acute inflammation, lamina propria hyalinization, fibrosis, chronic inflammation and reactive/regenerative crypts. The finding is consistent with ischemic colitis. No dysplasia is seen. Specimen Tissue Performing Organization Address [facility] Phone Number [facility] [address] [place] [phone] [facility] * Prothrombin time/INR (06/15/2019 8:18 AM CDT) Only the most recent of 2 results within the time period is included. Protime 13.9 11.9 - 14.2 seconds [facility] INR 1.1 <=5.9 [facility] Specimen Blood Narrative Performed At Effective 04/07/2019: PT Reference Range Change [facility] New: 11.9-14.2Previous: 11.7-14.7 [facility] RECOMMENDED COUMADIN/WARFARIN INR THERAPY RANGES STANDARD DOSE: 2.0-3.0Includes: PROPHYLAXIS for venous thrombosis, systemic embolization; TREATMENT for venous thrombosis and/or pulmonary embolus. HIGH RISK: Target INR is 2.5-3.5 for patients wiht mechanical heart valves. Performing Organization Address City/[facility]/Zipcode Phone Number [facility] [address] [place] [address] [facility] * Basic Metabolic Panel (06/15/2019 8:18 AM CDT) Only the most recent of 11 results within the time period is included. Sodium 138 136 - 145 meq/L [facility] Potassium 3.8Comment: Specimen slightly 3.5 - 5.1 meq/L [facility] hemolyzed [facility] Chloride 110 (H) 98 - 107 meq/L [facility] CO2 22 22 - 29 meq/L [facility] BUN 3 (L) 7 - 21 mg/dL [facility] Creatinine 0.61Comment: Specimen slightly 0.57 - 1.25 mg/dL [facility] hemolyzed [facility] Glucose 90 70 - 105 mg/dL [facility] Calcium 8.3 (L) 8.4 - 10.2 mg/dL [facility] EGFR 103Comment: ESTIMATED GFR IS mL/min/1.73 sq m [facility] NOT ACCURATE CREATININE [facility] CLEARANCE IN PREDICTING GLOMERULAR FILTRATION RATE. ESTIMATED GFR IS NOT APPLICABLE FOR DIALYSIS PATIENTS. Specimen Blood Performing Organization Address City/[facility] [place] Phone Number [address] [address] [facility] * C-Reactive Protein (06/14/2019 3:31 AM CDT) Only the most recent of 2 results within the time period is included. CRP 3.72 (H) 0.00 - 0.50 mg/dL [facility] Specimen Blood Performing Organization Address [facility] [place] Phone Number [address] [address] [phone] [place] [address] * Clostridium difficile [facility] Toxin (06/13/2019 9:39 AM CDT) C. Difficle Toxin Negative Negative [facility] C. Difficile [facility] Antigen NegativeComment: No indication Negative [facility] of Clostridium difficile [facility] infection and no colonization. Discontinue enteric isolation and therapy. Specimen Stool Narrative Performed At Testing performed by [employer] Rapid Cassette Assay.For [facility], published [facility] sensitivity of the assay is 98.7% compared to cytotoxicity testing.For Toxin [facility] AB, published sensitivity is 87.8% and specificity 99.4% compared to cytotoxicity testing. Verification of kit performance was done by the [facility] Microbiology Lab prior to clinical use. Performing Organization Address City/[facility] Cent[facility]ode Phone Number [address] [phone] [facility] * STOOL PATH CHARGE (06/13/2019 9:39 AM CDT) Pathogen exam charged Done [facility] Specimen Stool Performing Organization Address City/[facility] Centercode Phone Number [address] [address] [facility] * Shiga Toxin Screen (06/13/2019 9:39 AM CDT) Shiga toxin 1 Not detected Not detected [facility] Shiga toxin 2 Not detected Not detected [facility] Specimen Stool Performing Organization Address [facility] Centercode Phone Number [address] [address] [phone] [place] [address] * Stool culture + Shiga toxin (06/13/2019 9:39 AM CDT) Result No Salmonella, Shigella or [facility] Campylobacter [facility] Specimen Stool Performing Organization Address City/[facility] Cent[facility]ode Phone Number [address] [address] [phone] [place] [address] * Vitamin B12 and Folate (06/13/2019 5:01 AM CDT) Vitamin B12 266 213 - 816 pg/mL [facility] Folate 10.2 >=7.0 ng/mL [facility] Specimen Blood Performing Organization Address City/[facility]/Zipcode Phone Number [address] [address] [facility] * TSH/Free T4 If Indicated (06/13/2019 5:01 AM CDT) TSH 3.07 0.35 - 4.94 uIU/mL [facility] Specimen Blood Performing Organization Address City/[facility]/Zipcode Phone Number [address] [address] [facility] * CBC (Hemogram only) (06/13/2019 5:01 AM CDT) Only the most recent of 2 results within the time period is included. WBC 11.2 (H) 3.5 - 10.5 K/L [facility] RBC 4.55 3.93 - 5.22 M/L [facility] Hemoglobin 13.8 11.2 - 15.7 GM/DL [facility] Hematocrit 41.7 34.1 - 44.9 % [facility] MCV 91.6 79.4 - 94.8 fL [facility] MCH 30.3 25.6 - 32.2 pg [facility] MCHC 33.1 32.2 - 35.5 GM/DL [facility] RDW 14.5 (H) 11.7 - 14.4 % [facility] Platelets 134 (L) 150 - 450 K/CU MM [facility] MPV 11.5 9.4 - 12.3 fL [facility] nRBC 0 0 - 0 /100 WBC [facility] Specimen Blood Performing Organization Address City/State/Zipcode Phone Number [facility] [address] [place] [address] [facility] * Comprehensive metabolic panel (06/13/2019 5:01 AM CDT) Protein, Total 5.9 (L) 6.0 - 8.3 gm/dL [facility] Albumin 3.6 3.5 - 5.0 g/dL [facility] Alkaline Phosphatase 57 40 - 150 U/L [facility] Total Bilirubin 1.2 0.2 - 1.2 mg/dL [facility] Sodium 137 136 - 145 meq/L [facility] Potassium 3.5 3.5 - 5.1 meq/L [facility] Chloride 109 (H) 98 - 107 meq/L [facility] CO2 22 22 - 29 meq/L [facility] BUN 8 7 - 21 mg/dL [facility] Creatinine 0.67 0.57 - 1.25 mg/dL [facility] Glucose 95 70 - 105 mg/dL [facility] Calcium 8.2 (L) 8.4 - 10.2 mg/dL [facility] AST 16 5 - 34 U/L [facility] ALT 14 6 - 55 U/L [facility] EGFR 92Comment: ESTIMATED GFR IS mL/min/1.73 sq m [facility] NOT ACCURATE CREATININE [facility] CLEARANCE IN PREDICTING GLOMERULAR FILTRATION RATE. ESTIMATED GFR IS NOT APPLICABLE FOR DIALYSIS PATIENTS. Specimen Blood Performing Organization Address City/[facility] Cent[facility]ode Phone Number [address] [address] [facility] * Troponin I (not available at [facility] [place]) (06/12/2019 11:50 PM CDT) Troponin I 0.01 0.00 - 0.03 ng/mL [facility] Specimen Blood Narrative Performed At Troponin I (TnI) levels must be interpreted in the context of the presenting [facility] symptoms and the clinical findings. Elevated TnI levels indicate myocardial [facility] damage, but are not specific for ischemic heart disease. Elevated TnI levels are seen in patients with other cardiac conditions (including myocarditis and congestive heart failure), and slight TnI elevations occur in patients with other conditions, including sepsis, renal failure, acidosis, acute neurological disease, and persistent tachyarrhythmia. Performing Organization Address City/[facility] Centercode Phone Number [place] [phone] [place], [place] [id number] [facility] * Creatine Kinase (CK) (06/12/2019 11:50 PM CDT) Total CK 63 29 - 200 U/L [facility] Specimen Blood Performing Organization Address City/State/Zipcode Phone Number [facility] [address] [place] [address] [facility] [address] * CT abdomen pelvis with IV contrast (06/12/2019 10:02 PM CDT) Specimen Narrative Performed At FINAL REPORT [facility] TECHNIQUE: CT of the abdomen WITH intravenous contrast and WITH oral contrast. Dose modulation, iterative reconstruction, and/or weight-based adjustment of the mA/kV was utilized to reduce the radiation dose to as low as reasonably achievable. INDICATION: Left lower quadrant pain. COMPARISON: None. FINDINGS: LOWER THORAX: Unremarkable. HEPATOBILIARY: No focal hepatic lesions. Gallbladder is unremarkable. No biliary ductal dilatation. SPLEEN: No splenomegaly. PANCREAS: No focal masses or ductal dilatation. ADRENALS: No adrenal nodules. KIDNEYS/URETERS: No hydronephrosis, stones, or solid mass lesions. PERITONEUM/RETROPERITONEUM: No free air or fluid. LYMPH NODES: No lymphadenopathy. VESSELS: Unremarkable. GI TRACT: No bowel distention. Moderately thickened edematous wall of the ascending colon with mild pericolonic fat stranding. There are a few sigmoid diverticula without associated inflammation. Normal appendix. BONES AND SOFT TISSUES: Prior L5-S1 fusion with instrumentation. Grade 1 anterolisthesis of L5 on S1. No acute osseous abnormality. IMPRESSION: 1. Thickened edematous wall of the descending colon with pericolonic stranding consistent with acute colitis, possibly of infectious or inflammatory etiology. 2. Few sigmoid diverticula without associated inflammation. Signed: Vivian Cho MD Report Verified Date/Time:06/12/2019 22:36:43 Reading Location: [address] Transitional Reading Room Procedure Note Interface, External Ris In - 06/12/2019 10:38 PM CDT FINAL REPORT TECHNIQUE: CT of the abdomen WITH intravenous contrast and WITH oral contrast. Dose modulation, iterative reconstruction, and/or weight-based adjustment of the mA/kV was utilized to reduce the radiation dose to as low as reasonably achievable. INDICATION: Left lower quadrant pain. COMPARISON: None. FINDINGS: LOWER THORAX: Unremarkable. HEPATOBILIARY: No focal hepatic lesions. Gallbladder is unremarkable. No biliary ductal dilatation. SPLEEN: No splenomegaly. PANCREAS: No focal masses or ductal dilatation. ADRENALS: No adrenal nodules. KIDNEYS/URETERS: No hydronephrosis, stones, or solid mass lesions. PERITONEUM/RETROPERITONEUM: No free air or fluid. LYMPH NODES: No lymphadenopathy. VESSELS: Unremarkable. GI TRACT: No bowel distention. Moderately thickened edematous wall of the ascending colon with mild pericolonic fat stranding. There are a few sigmoid diverticula without associated inflammation. Normal appendix. BONES AND SOFT TISSUES: Prior L5-S1 fusion with instrumentation. Grade 1 anterolisthesis of L5 on S1. No acute osseous abnormality. IMPRESSION: 1. Thickened edematous wall of the descending colon with pericolonic stranding consistent with acute colitis, possibly of infectious or inflammatory etiology. 2. Few sigmoid diverticula without associated inflammation. Signed: Vivian Cho MD Report Verified Date/Time: 06/12/2019 22:36:43 Reading Location: [address] Transitional Reading Room Performing Organization Address City/State/Zipcode Phone Number [facility] * Urinalysis w/Microscopic + Reflex to Culture (06/12/2019 9:40 PM CDT) Only the most recent of 3 results within the time period is included. Color, UA Yellow [facility] Clarity, UA Clear [facility] Specific [place], UA 1.008 1.001 - 1.035 [facility] pH, UA 6.0 5.0 - 8.0 [facility] Protein, UA Negative Negative [facility] Glucose, UA Negative Negative [facility] Ketones, UA 20 mg/dL (A) Negative [facility] Bilirubin, UA Negative Negative [facility] Blood, UA Negative Negative [facility] Nitrite, UA Negative Negative [facility] Leukocytes, UA Negative Negative [facility] Urobilinogen, UA 0.2 0.2 - 1.0 mg/dL [facility] RBC, UA 3 /HPF [facility] WBC, UA 2 /HPF [facility] Mucus Many [facility] Squam Epithel, UA 2 /HPF [facility] Specimen Source [facility] Specimen Urine Performing Organization Address [facility] Centercomi Phone Number [address] [phone] [facility] * POC-Lactic Acid, Venous (06/12/2019 7:11 PM CDT) POC-Lactic Acid, Venous 1.9 (H)Comment: TESTED AT 0.9 - 1.7 mmol/L [address] [address] Specimen Blood Performing Organization Address City/[facility] Centercomi Phone Number [address] [phone] [facility] * ECG 12 lead (06/12/2019 7:09 PM CDT) Specimen Narrative Performed At Ventricular Rate 73 BPM [facility] Atrial Rate 73 BPM P-R Interval 108 ms QRS Duration 72 ms Q-T Interval 426 ms QTC Calculation(Bazett) 469 ms P Frederick -4 degrees R Frederick 8 degrees T Frederick 13 degrees Sinus rhythm with short AL Minimal voltage criteria for LVH, may be normal variant Borderline ECG No previous ECGs available Confirmed by MD LEESA, LUCIA ([id number]) on 06/13/2019 10:31:01 AM Procedure Note Interface, External Ris In - 06/13/2019 10:31 AM CDT Ventricular Rate 73 BPM Atrial Rate 73 BPM P-R Interval 108 ms QRS Duration 72 ms Q-T Interval 426 ms QTC Calculation(Bazett) 469 ms P Frederick -4 degrees R Frederick 8 degrees T Frederick 13 degrees Sinus rhythm with short AL Minimal voltage criteria for LVH, may be normal variant Borderline ECG No previous ECGs available Confirmed by MD LEESA, LUCIA ([id number]) on 06/13/2019 10:31:01 AM Performing Organization Address City/State/Zipcode Phone Number [facility] * Blood Culture - Routine (Left Venipuncture) (06/12/2019 7:09 PM CDT) Only the most recent of 4 results within the time period is included. Result No growth in 5 days [facility] Specimen Blood Performing Organization Address City/[facility] Cent[facility]ode Phone Number [address] [address] [facility] * Blood gas, venous (06/12/2019 7:09 PM CDT) pH, Jose Daniel 7.34 7.32 - 7.42 [facility] pCO2, Jose Daniel 50 41 - 51 mmHg [facility] pO2, Jose Daniel 26 25 - 40 mmHg [facility] O2 Sat, Jose Daniel 43.9 40.0 - 70.0 % [facility] HCO3, Jose Daniel 27 21 - 29 mmol/L [facility] Base Excess, Jose Daniel 0.0 -2.0 - 3.0 mmol/L [facility] Patient Temperature 37.0 C [facility] Specimen Blood Performing Organization Address [facility] Centercode Phone Number [facility] [address] [place] [address] [facility] * PT/aPTT (06/12/2019 6:55 PM CDT) Only the most recent of 2 results within the time period is included. Protime 12.8 11.9 - 14.2 seconds [facility] INR 1.0 <=5.9 [facility] PTT 29.6 22.5 - 36.0 seconds [facility] Specimen Blood Narrative Performed At Effective 04/07/2019: PT Reference Range Change [facility] New: 11.9-14.2Previous: 11.7-14.7 [facility] RECOMMENDED COUMADIN/WARFARIN INR THERAPY RANGES STANDARD DOSE: 2.0-3.0Includes: PROPHYLAXIS for venous thrombosis, systemic embolization; TREATMENT for venous thrombosis and/or pulmonary embolus. HIGH RISK: Target INR is 2.5-3.5 for patients wiht mechanical heart valves. Performing Organization Address City/[facility] Centercomi Phone Number [address] * Phosphorus (06/12/2019 6:55 PM CDT) Only the most recent of 2 results within the time period is included. Phosphorus 2.5Comment: Specimen markedly 2.3 - 4.7 mg/dL [facility] Specimen Blood Performing Organization Address [facility] Phone Number [address] * Magnesium (06/12/2019 6:55 PM CDT) Only the most recent of 2 results within the time period is included. Magnesium 1.9Comment: Specimen markedly 1.6 - 2.6 mg/dL [facility] Specimen Blood Performing Organization Address [facility] Phone Number [address] * Lipase (06/12/2019 6:55 PM CDT) Lipase 19 8 - 78 U/L [facility] Specimen Blood Performing Organization Address [facility] Phone Number [address] * Hepatic function panel (06/12/2019 6:55 PM CDT) Protein, Total 8.1Comment: Specimen markedly 6.0 - 8.3 gm/dL [facility] Albumin 4.3Comment: Specimen markedly 3.5 - 5.0 g/dL [facility] Total Bilirubin 1.3 (H)Comment: Specimen 0.2 - 1.2 mg/dL [facility] markedly hemolyzed [facility] Bilirubin, Direct 0.4Comment: Specimen markedly 0.1 - 0.5 mg/dL [facility] hemolyzed [facility] Alkaline Phosphatase 65 40 - 150 U/L [facility] AST 35 (H)Comment: Specimen 5 - 34 U/L [facility] markedly hemolyzed [facility] ALT 20Comment: Specimen markedly 6 - 55 U/L [facility] hemolyzed [facility] Specimen Blood Performing Organization Address City/State/Zipcode Phone Number [facility] [address] [place] [address] [facility] * ECG/EKG Interpretation (06/12/2019 6:31 PM CDT) Narrative Performed At Haley Bonner MD 06/12/2019 11:55 PM ECG/EKG Interpretation Date/Time: 06/12/2019 7:09 PM Performed by: Haley Bonner MD Authorized by: Haley Bonner MD The ECG was interpreted by ED physician. This ECG was compared with previous ECG(s).The ECG is interpreted as sinus rhythm. Rate is normal rate. Heart rate is 73 BPM. Conduction: conduction normal. ST segments normal. T waves normal. Frederick is normal. Other findings: no other findings. Clinical Impression: non-specific ECGECG reviewed and does not meet STEMI criteria. Patient tolerance: Patient tolerated the procedure well with no immediate complications * CT Spine Lumbar without IV Contrast (04/26/2019 10:00 AM CDT) Only the most recent of 3 results within the time period is included. Specimen Narrative Performed At FINAL REPORT [facility] CT Lumbar spine CLINICAL HISTORY: Z98.1 TECHNIQUE: Contiguous noncontrast axial images of the lumbar spine with coronal and sagittal reformations to assess the alignment. This exam was performed according to the departmental dose optimization program which includes automated exposure control, adjustment of the mA and/or kV according to the patient size, and/or use of an iterative reconstruction technique. COMPARISON: Lumbar CT 12/31/2018 FINDINGS: Please note rudimentary ribs on the T12 vertebral body. As before, the patient is status post bilateral posterior spinal huy and pedicle screw fusion of what is considered L5-S1 with interbody metallic cages. 10 mm anterolisthesis is again seen with a decompressive laminectomy. The four pedicle screws again slightly extend beyond the anterior vertebral body margins into the adjacent soft tissues. There is no interval evidence of hardware failure or loosening. The lumbar vertebral body heights are maintained. The lumbar curvature and alignment is otherwise preserved. As before, the central canal contents are not not well evaluated at L4-L5 and L5-S1 secondary to metallic streak effect. The upper lumbar levels do not reveal significant appearing central canal stenosis. The visualized soft tissues are grossly unremarkable. IMPRESSION: Since 12/31/2018, the CT postsurgical appearance of the lower lumbar spine is unchanged. Signed: Edel Nunez MD Report Verified Date/Time:04/26/2019 10:51:31 Reading Location: [facility] [id number] Neuro Reading Room Procedure Note Interface, External Ris In - 04/26/2019 10:53 AM CDT FINAL REPORT CT Lumbar spine CLINICAL HISTORY: Z98.1 TECHNIQUE: Contiguous noncontrast axial images of the lumbar spine with coronal and sagittal reformations to assess the alignment. This exam was performed according to the departmental dose optimization program which includes automated exposure control, adjustment of the mA and/or kV according to the patient size, and/or use of an iterative reconstruction technique. COMPARISON: Lumbar CT 12/31/2018 FINDINGS: Please note rudimentary ribs on the T12 vertebral body. As before, the patient is status post bilateral posterior spinal huy and pedicle screw fusion of what is considered L5-S1 with interbody metallic cages. 10 mm anterolisthesis is again seen with a decompressive laminectomy. The four pedicle screws again slightly extend beyond the anterior vertebral body margins into the adjacent soft tissues. There is no interval evidence of hardware failure or loosening. The lumbar vertebral body heights are maintained. The lumbar curvature and alignment is otherwise preserved. As before, the central canal contents are not not well evaluated at L4-L5 and L5-S1 secondary to metallic streak effect. The upper lumbar levels do not reveal significant appearing central canal stenosis. The visualized soft tissues are grossly unremarkable. IMPRESSION: Since 12/31/2018, the CT postsurgical appearance of the lower lumbar spine is unchanged. Signed: Edel Nunez MD Report Verified Date/Time: 04/26/2019 10:51:31 Reading Location: [facility] [id number] Neuro Reading Room Performing Organization Address City/[facility]/Zipcode Phone Number [facility] * XR spine lumbar 2 or 3 views (03/01/2019 10:18 AM CDT) Only the most recent of 2 results within the time period is included. Specimen Narrative Performed At FINAL REPORT [facility] Exam:Lumbar spine AP lateral History:Back pain Comparison: None. Findings: No acute fracture. Fusion of L5-S1 with transpedicular screws and interbody cage. Hardware intact. Stable anterolisthesis of L5 on S1. Impression: No acute osseous abnormality Fusion of L5-S1. No complication. Signed: Edel Jimenez MD Report Verified Date/Time:03/01/2019 10:34:03 Reading Location: [employer] Reading Room [address] [place] [address] Procedure Note Interface, External Ris In - 03/01/2019 10:36 AM CDT FINAL REPORT Exam: Lumbar spine AP lateral History: Back pain Comparison: None. Findings: No acute fracture. Fusion of L5-S1 with transpedicular screws and interbody cage. Hardware intact. Stable anterolisthesis of L5 on S1. Impression: No acute osseous abnormality Fusion of L5-S1. No complication. Signed: Edel Jimenez MD Report Verified Date/Time: 03/01/2019 10:34:03 Reading Location: [employer] Reading Room [address] [address] Performing Organization Address City/State/Zipcode Phone Number [facility] * TRANSFUSION SERVICE REPORT - SCAN (01/02/2019 6:01 PM DEVIL TENDER) Only the most recent of 4 results within the time period is included. Narrative Performed At * AFB culture + smear (01/01/2019 3:42 PM DEVIL TENDER) Result No acid-fast bacilli isolated [facility] in 42 days [facility] AFB Smear No acid fast bacilli seen [facility] Specimen Tissue Performing Organization Address City/[facility]/Zipcode Phone Number [facility] [address] [place] [address] [facility] * Anaerobic culture (01/01/2019 3:42 PM DEVIL TENDER) Result No anaerobes isolated [facility] Specimen Tissue Performing Organization Address City/[facility]/Zipcode Phone Number [facility] [address] [place] [address] [facility]ENTER * Surgically obtained culture + gram stain (01/01/2019 3:42 PM DEVIL TENDER) Result <1+ Pseudomonas aeruginosa (A) [facility] Gram Stain Result <1+ WBCs [facility] Gram Stain Result No organisms seen [facility] Specimen Wound Antibiotic Method Susceptibility Organism Amikacin <=8: Susceptible Pseudomonas aeruginosa Aztreonam 8: Susceptible Pseudomonas aeruginosa Cefepime <=4: Susceptible Pseudomonas aeruginosa Ceftazidime 4: Susceptible Pseudomonas aeruginosa Ciprofloxacin <=0.5: Susceptible Pseudomonas aeruginosa Gentamicin <=2: Susceptible Pseudomonas aeruginosa Imipenem 4: Resistant Pseudomonas aeruginosa Levofloxacin <=1: Susceptible Pseudomonas aeruginosa Meropenem 1: Susceptible Pseudomonas aeruginosa Piperacillin <=16: Susceptible Pseudomonas aeruginosa Piperacillin + Tazobactam <=8: Susceptible Pseudomonas aeruginosa Ticarcillin + Clavulanic Acid 32: Resistant Pseudomonas aeruginosa Tobramycin <=2: Susceptible Pseudomonas aeruginosa Trimethoprim + Sulfamethoxazole 80: Resistant Pseudomonas aeruginosa Performing Organization Address City/[facility]/Zipcode Phone Number [facility] [address] [place] [address] [facility] * Fungus culture + smear (01/01/2019 3:42 PM DEVIL TENDER) Result No fungus isolated in 28 days [facility] Fungus Smear No fungi seen [facility] Specimen Tissue Performing Organization Address City/[facility]/Zipcode Phone Number [facility] [address] [place] [phone] [facility] * Type and screen, automated (12/31/2018 11:10 PM DEVIL TENDER) Only the most recent of 2 results within the time period is included. ABO/RH AUTOMATED (BEAKER) O POSITIVE [facility] Ab Scrn NEGATIVE [facility] Specimen Blood Performing Organization Address City/State/Zipcode Phone Number [facility] [address] [place] [address] [facility] * NEEDLE EMG, 2 EXTREMITY (12/08/2018 3:00 PM DEVIL TENDER) Specimen Narrative Performed At [facility] INTRAOPERATIVE MONITORING REPORT Patient name: Melinda Wiggins [facility] Surgery Date: 12/08/2018 [place] Pro: [id number] Monitoring began at 1127 and ended at 1446 Surgeon: Turner Street MD Examining Physician : Valeri Frederick MD Procedure: TLIF L5-S1 Stimulation Parameters: Pedicle/Cortical screws individually stimulated by the Surgeon Rate 2.1Hz, Intensity 0-20mA, Duration 0.2ms Filters 20-2KHz, Notch Off Free-running and Triggered EMG of Tibialis Anterior (L4-5) and Lateral Gastrocnemius (L5-S2) muscle groups. Description : Intraoperative neurophysiological monitoring was performed using a combination of free-running and Triggered EMG and Free-running EMGs. A real-time connection with the examining neurologist was established and maintained throughout the operative procedure by the monitoring technologist. Pedicle/Cortical Screw Triggered EMG was performed following the placement of screw via a sterile Prass probe held by the surgeon. The resulting intensity values required to elicit a response from each placement were reported to the surgeon. Free-running EMG of L4-S2 innervated muscle groups was monitored continuously throughout the operative procedure with some sporadic neurotonic emg activity that was reported to the surgeon. EMG quiet in all muscle groups at closing. Surgeon aware of firing at closing and of responses throughout case. Valeri Frederick MD Z01.818 Procedure Note Interface, External Ris In - 03/24/2019 3:57 PM CDT INTRAOPERATIVE MONITORING REPORT Patient name: Melinda Wiggins [facility] Surgery Date: 12/08/2018 [place] Pro: [id number] Monitoring began at 1127 and ended at 1446 Surgeon: Turner Street MD Examining Physician : Valeri Frederick MD Procedure: TLIF L5-S1 Stimulation Parameters: Pedicle/Cortical screws individually stimulated by the Surgeon Rate 2.1Hz, Intensity 0-20mA, Duration 0.2ms Filters 20-2KHz, Notch Off Free-running and Triggered EMG of Tibialis Anterior (L4-5) and Lateral Gastrocnemius (L5-S2) muscle groups. Description : Intraoperative neurophysiological monitoring was performed using a combination of free-running and Triggered EMG and Free-running EMGs. A real-time connection with the examining neurologist was established and maintained throughout the operative procedure by the monitoring technologist. Pedicle/Cortical Screw Triggered EMG was performed following the placement of screw via a sterile Prass probe held by the surgeon. The resulting intensity values required to elicit a response from each placement were reported to the surgeon. Free-running EMG of L4-S2 innervated muscle groups was monitored continuously throughout the operative procedure with some sporadic neurotonic emg activity that was reported to the surgeon. EMG quiet in all muscle groups at closing. Surgeon aware of firing at closing and of responses throughout case. Valeri Frederick MD Z01.818 Performing Organization Address City/State/Zipcode Phone Number [facility] * [place] graduate teaching associate in or 30 minute increments (12/08/2018 2:45 PM DEVIL TENDER) Only the most recent of 2 results within the time period is included. Specimen Narrative Performed At FINAL REPORT [facility] Intraoperative fluoroscopy films performed by the referring physician. Number of images: 3 Fluoroscopic time: 14.1 seconds The films were submitted to PACS postprocedure. The radiologist was not present at the time of examination. An interpretation was not requested. The submitted images are nondiagnostic without real-time visualization. Please refer to the performing physician's dictation for all details regarding the procedure including the submitted images. The radiologist did not perform fluoroscopy. Signed: Edel Nunez MD Report Verified Date/Time:12/08/2018 15:20:33 Reading Location: [facility] C013 Consult Reading Room Procedure Note Interface, External Ris In - 12/08/2018 3:22 PM DEVIL TENDER FINAL REPORT Intraoperative fluoroscopy films performed by the referring physician. Number of images: 3 Fluoroscopic time: 14.1 seconds The films were submitted to PACS postprocedure. The radiologist was not present at the time of examination. An interpretation was not requested. The submitted images are nondiagnostic without real-time visualization. Please refer to the performing physician's dictation for all details regarding the procedure including the submitted images. The radiologist did not perform fluoroscopy. Signed: Edel Nunez MD Report Verified Date/Time: 12/08/2018 15:20:33 Reading Location: [facility] C013 Consult Reading Room Performing Organization Address City/[facility] * ABORH, manual (12/08/2018 10:48 AM DEVIL TENDER) ABO Grouping O [facility] Rh Factor POS [facility] Specimen Blood Performing Organization Address City/[facility]/Zipcode Phone Number [facility] [address] [place] [address] MEDICAL CENTER * XR chest 2 views (11/26/2018 12:31 PM DEVIL TENDER) Specimen Narrative Performed At FINAL REPORT [facility] Chest, PA and lateral. History: Lumbar spondylolysis. Comparison: None available. Discussion:The cardiomediastinal silhouette and pulmonary vasculature are within normal limits. The lungs are clear without evidence of consolidation or effusion.There are no acute osseous abnormalities. The soft tissues are unremarkable. IMPRESSION: No acute cardiopulmonary abnormality. Signed: Colleen Tripathi MD Report Verified Date/Time:11/26/2018 12:48:55 Reading Location: [address] Radiology Reading Room Procedure Note Interface, External Ris In - 11/26/2018 12:51 PM DEVIL TENDER FINAL REPORT Chest, PA and lateral. History: Lumbar spondylolysis. Comparison: None available. Discussion: The cardiomediastinal silhouette and pulmonary vasculature are within normal limits. The lungs are clear without evidence of consolidation or effusion. There are no acute osseous abnormalities. The soft tissues are unremarkable. IMPRESSION: No acute cardiopulmonary abnormality. Signed: Colleen Tripathi MD Report Verified Date/Time: 11/26/2018 12:48:55 Reading Location: [address] Radiology Reading Room Performing Organization Address City/State/Zipcode Phone Number [facility] * aPTT (11/26/2018 12:06 PM DEVIL TENDER) PTT 29.8 22.5 - 36.0 seconds [facility] Specimen Blood Performing Organization Address [facility]/Zipcode Phone Number [address] [address] [facility] after 07/23/2018 Insurance Payer Benefit Subscriber ID Type Phone Address Plan / Group [employer] - [employer] CARE AET[employer] OPEN xxxxxxxxxx HMO/POS ACCESS HMO NAP Advance Directives For more information, please contact: [address] [address] Date Inactivated Comments Code Status Date Activated 01/03/2019 1:28 PM Full Code 01/01/2019 6:30 PM This code status was determined by: Patient 01/01/2019 6:30 PM Full Code 12/31/2018 6:40 PM This code status was determined by: Patient 12/31/2018 5:35 PM Full Code 12/08/2018 10:31 AM This code status was determined by: Patient
--- OUTSIDE RECORDS SUMMARY | 2019-07-24 18:32 | XMS REPORT ---
Author Author [facility] Address Unknown Phone Unavailable Care Team Providers Care Manager Of Investigations Name Role Phone BOGDAN HAMMERChay TSAICAROLYNE Unavailable Unavailable ROPPERVALERI Unavailable Unavailable Problems This patient has no known problems. Allergies, Adverse Reactions, Alerts This patient has no known allergies or adverse reactions. Medications This patient has no known medications. Results Test Description Test Time Test Comments Text Results Atomic Results Result Comments TISSUE EXAM 2019-06-18 14:29:00 Surgical Pathology Report Case: [id number] Authorizing Provider: Dre Saucedo MD Collected: 06/15/2019 1047 Ord ering Location: [address] Received: 06/16/2019 0829 Service Pathologist: Hodan Pettit MD Specimen: Large Intestine, Colon - Rectosigmoid, biopsy RECTOSIGMOID COLON, BIOPSY: - CONSISTENT WITH HISTORY OF ISCHEMIC COLITISCC/pl Signing Pathologist Direct Phone Line: [phone] signed by Hodan Pettit MD on 06/18/2019 at 2:29 [id number] and postop diagnosis: gastrointestinal hemorrhage, unspecified gastrointestinal hemorrhage typeLarge intestine, colon - rectosigmoid biopsyReceived in formalin labeled with the patient's name, accession number and "large intestine, colon - rectosigmoid" are two irregular eaton soft tissue fragments measuring 0.3 cm and 0.2 cm which are submitted in toto in A1. CG/pl The rectosigmoid colon biopsy consists of multiple pieces of colonic mucosa with reactive surface epithelium, wethered glands with focal acute inflammation, lamina propria hyalinization, fibrosis, chronic inflammation and reactive/regenerative crypts. The finding is consistent with ischemic colitis. No dysplasia is seen. BLOOD CULTURE 2019-06-18 02:01:00 CULTURE (Lessno) (test ztee=4237) No growth in 5 days BLOOD [id number] 02:01:00* Test Item Value Reference Range Comments CULTURE (Lessno) (test dklk=7921) No growth in 5 days CBC W/PLT COUNT & AUTO [id number] 11:56:00* Test Item Value Reference Range Comments WHITE BLOOD CELL COUNT (BEAKER) (test spje=994) 7.0 K/ L 3.5-10.5 RED BLOOD CELL COUNT (BEAKER) (test vukx=958) 4.46 M/ L 3.93-5.22 HEMOGLOBIN (BEAKER) (test vtdw=176) 13.5 GM/DL 11.2-15.7 HEMATOCRIT (BEAKER) (test nnwa=333) 42.3 % 34.1-44.9 MEAN CORPUSCULAR VOLUME (BEAKER) (test yiqs=100) 94.8 fL 79.4-94.8 MEAN CORPUSCULAR HEMOGLOBIN (BEAKER) (test dywc=734) 30.3 pg 25.6-32.2 MEAN CORPUSCULAR HEMOGLOBIN CONC (BEAKER) (test roow=255) 31.9 GM/DL 32.2-35.5 RED CELL DISTRIBUTION WIDTH (BEAKER) (test vrpl=651) 14.6 % 11.7-14.4 PLATELET COUNT (BEAKER) (test jnkb=163) 192 K/CU MM 150-450 MEAN PLATELET VOLUME (BEAKER) (test jzob=105) 10.9 fL 9.4-12.3 NUCLEATED RED BLOOD CELLS (BEAKER) (test rfku=006) 0 /100 WBC 0-0 NEUTROPHILS RELATIVE PERCENT (BEAKER) (test xwst=072) 53 % LYMPHOCYTES RELATIVE PERCENT (BEAKER) (test xyyn=067) 32 % MONOCYTES RELATIVE PERCENT (BEAKER) (test ahnz=418) 9 % EOSINOPHILS RELATIVE PERCENT (BEAKER) (test nqcu=053) 5 % BASOPHILS RELATIVE PERCENT (BEAKER) (test decq=312) 1 % NEUTROPHILS ABSOLUTE COUNT (BEAKER) (test muec=508) 3.71 K/ L 1.56-6.13 LYMPHOCYTES ABSOLUTE COUNT (BEAKER) (test oaun=818) 2.24 K/ L 1.18-3.74 MONOCYTES ABSOLUTE COUNT (BEAKER) (test zimp=832) 0.64 K/ L 0.24-0.36 EOSINOPHILS ABSOLUTE COUNT (BEAKER) (test cfgo=784) 0.37 K/ L 0.04-0.36 BASOPHILS ABSOLUTE COUNT (BEAKER) (test cbkn=406) 0.05 K/ L 0.01-0.08 IMMATURE GRANULOCYTES-RELATIVE PERCENT (BEAKER) (test htuu=5771) 0 % 0-1 STOOL CULTURE + SHIGA [id number] 11:55:00* Test Item Value Reference Range Comments CULTURE (BEAKER) (test xdxa=4920) No Salmonella, Shigella or Campylobacter isolated BASIC METABOLIC [id number] 08:48:00* Test Item Value Reference Range Comments SODIUM (BEAKER) (test lyzm=631) 138 meq/L 136-145 POTASSIUM (BEAKER) (test wlvk=951) 3.8 meq/L 3.5-5.1 Specimen slightly hemolyzed CHLORIDE (BEAKER) (test yszr=875) 110 meq/L 98-107 CO2 (BEAKER) (test fbax=203) 22 meq/L 22-29 BLOOD UREA NITROGEN (BEAKER) (test etdd=813) 3 mg/dL 7-21 CREATININE (BEAKER) (test xuox=292) 0.61 mg/dL 0.57-1.25 Specimen slightly hemolyzed GLUCOSE RANDOM (BEAKER) (test udwp=176) 90 mg/dL 70-105 CALCIUM (BEAKER) (test ipia=536) 8.3 mg/dL 8.4-10.2 EGFR (BEAKER) (test civp=8092) 103 mL/min/1.73 sq m ESTIMATED GFR IS NOT ACCURATE CREATININE CLEARANCE IN PREDICTING GLOMERULAR FILTRATION RATE. ESTIMATED GFR IS NOT APPLICABLE FOR DIALYSIS PATIENTS. PROTHROMBIN TIME/[id number] 08:43:00* Test Item Value Reference Range Comments PROTIME (BEAKER) (test mwdb=040) 13.9 seconds 11.9-14.2 INR (BEAKER) (test ruwu=216) 1.1 <=5.9 Effective 04/07/2019: PT Reference Range ChangeNew: 11.9-14.2 Previous: 11.7-14. 7RECOMMENDED COUMADIN/WARFARIN INR THERAPY RANGESSTANDARD DOSE: 2.0-3.0 Include s: PROPHYLAXIS for venous thrombosis, systemic embolization; TREATMENT for venou s thrombosis and/or pulmonary embolus.HIGH RISK: Target INR is 2.5-3.5 for patie nts wiht mechanical heart valves.STOOL PATH [id number] 13:49:00* Test Item Value Reference Range Comments PATHOGEN EXAM CHARGED (BEAKER) (test eano=0222) Done SHIGA TOXIN [id number] 13:25:00* Test Item Value Reference Range Comments SHIGA TOXIN 1 (BEAKER) (test niqg=5923) Not detected Not detected SHIGA TOXIN 2 (BEAKER) (test qlfj=7763) Not detected Not detected C-REACTIVE [id number] 04:49:00* Test Item Value Reference Range Comments C-REACTIVE PROTEIN (BEAKER) (test mokg=613) 3.72 mg/dL 0.00-0.50 BASIC METABOLIC [id number] 04:43:00* Test Item Value Reference Range Comments SODIUM (BEAKER) (test bnqs=721) 137 meq/L 136-145 POTASSIUM (BEAKER) (test zxax=508) 3.7 meq/L 3.5-5.1 CHLORIDE (BEAKER) (test ssmc=321) 109 meq/L 98-107 CO2 (BEAKER) (test evav=987) 23 meq/L 22-29 BLOOD UREA NITROGEN (BEAKER) (test khoi=660) 5 mg/dL 7-21 CREATININE (BEAKER) (test ijtu=857) 0.67 mg/dL 0.57-1.25 GLUCOSE RANDOM (BEAKER) (test fheg=863) 104 mg/dL 70-105 CALCIUM (BEAKER) (test hknp=727) 8.4 mg/dL 8.4-10.2 EGFR (BEAKER) (test bipx=3506) 92 mL/min/1.73 sq m ESTIMATED GFR IS NOT ACCURATE CREATININE CLEARANCE IN PREDICTING GLOMERULAR FILTRATION RATE. ESTIMATED GFR IS NOT APPLICABLE FOR DIALYSIS PATIENTS. CBC W/PLT COUNT & AUTO [id number] 04:09:00* Test Item Value Reference Range Comments WHITE BLOOD CELL COUNT (BEAKER) (test nupq=864) 8.7 K/ L 3.5-10.5 RED BLOOD CELL COUNT (BEAKER) (test java=489) 4.37 M/ L 3.93-5.22 HEMOGLOBIN (BEAKER) (test zfop=142) 13.2 GM/DL 11.2-15.7 HEMATOCRIT (BEAKER) (test nbxi=184) 40.9 % 34.1-44.9 MEAN CORPUSCULAR VOLUME (BEAKER) (test kimp=290) 93.6 fL 79.4-94.8 MEAN CORPUSCULAR HEMOGLOBIN (BEAKER) (test fspd=092) 30.2 pg 25.6-32.2 MEAN CORPUSCULAR HEMOGLOBIN CONC (BEAKER) (test gotv=384) 32.3 GM/DL 32.2-35.5 RED CELL DISTRIBUTION WIDTH (BEAKER) (test brtb=662) 14.6 % 11.7-14.4 PLATELET COUNT (BEAKER) (test vfyd=242) 186 K/CU MM 150-450 MEAN PLATELET VOLUME (BEAKER) (test sfsd=540) 10.6 fL 9.4-12.3 NUCLEATED RED BLOOD CELLS (BEAKER) (test lfpa=721) 0 /100 WBC 0-0 NEUTROPHILS RELATIVE PERCENT (BEAKER) (test segv=047) 58 % LYMPHOCYTES RELATIVE PERCENT (BEAKER) (test pknm=485) 28 % MONOCYTES RELATIVE PERCENT (BEAKER) (test bfye=251) 9 % EOSINOPHILS RELATIVE PERCENT (BEAKER) (test yofv=726) 5 % BASOPHILS RELATIVE PERCENT (BEAKER) (test zgxc=732) 1 % NEUTROPHILS ABSOLUTE COUNT (BEAKER) (test irww=780) 5.02 K/ L 1.56-6.13 LYMPHOCYTES ABSOLUTE COUNT (BEAKER) (test gzjd=256) 2.41 K/ L 1.18-3.74 MONOCYTES ABSOLUTE COUNT (BEAKER) (test skzt=874) 0.78 K/ L 0.24-0.36 EOSINOPHILS ABSOLUTE COUNT (BEAKER) (test jqur=343) 0.45 K/ L 0.04-0.36 BASOPHILS ABSOLUTE COUNT (BEAKER) (test tyzd=460) 0.05 K/ L 0.01-0.08 IMMATURE GRANULOCYTES-RELATIVE PERCENT (BEAKER) (test owsl=1601) 0 % 0-1 C. DIFFICILE GDH [id number] 14:25:00* Test Item Value Reference Range Comments CDT TOXIN (test pucm=[id number]) Negative Negative CDT GDH ANTIGEN (test qgxy=[id number]) Negative Negative No indication of Clostridium difficile infection and no colonization. Discontinue enteric isolation and therapy. Testing performed by [employer] Rapid Cassette Assay. For GDH, published sensitivity of the assay is 98.7% compared to cytotoxicity testing. For Toxin AB, published sensitivity is 87.8% and specificity 99.4% compared to cytotoxicity testing.Ve rification of kit performance was done by the [facility] Microbiology Lab prior to cl inical use.TSH/FREE T4 IF [id number] 06:36:00* Test Item Value Reference Range Comments THYROID STIMULATING HORMONE (BEAKER) (test ppzq=628) 3.07 uIU/mL 0.35-4.94 VITAMIN B12 AND [id number] 06:36:00* Test Item Value Reference Range Comments VITAMIN B12 (BEAKER) (test fdzj=364) 266 pg/mL 213-816 FOLATE (BEAKER) (test kfdq=981) 10.2 ng/mL >=7.0 COMPREHENSIVE METABOLIC [id number] 06:01:00* Test Item Value Reference Range Comments TOTAL PROTEIN (BEAKER) (test knsp=448) 5.9 gm/dL 6.0-8.3 ALBUMIN (BEAKER) (test yfcx=0847) 3.6 g/dL 3.5-5.0 ALKALINE PHOSPHATASE (BEAKER) (test tlxv=293) 57 U/L 40-150 BILIRUBIN TOTAL (BEAKER) (test iswm=568) 1.2 mg/dL 0.2-1.2 SODIUM (BEAKER) (test ggnd=245) 137 meq/L 136-145 POTASSIUM (BEAKER) (test awue=895) 3.5 meq/L 3.5-5.1 CHLORIDE (BEAKER) (test lypn=307) 109 meq/L 98-107 CO2 (BEAKER) (test ybxj=983) 22 meq/L 22-29 BLOOD UREA NITROGEN (BEAKER) (test etkr=255) 8 mg/dL 7-21 CREATININE (BEAKER) (test odcz=092) 0.67 mg/dL 0.57-1.25 GLUCOSE RANDOM (BEAKER) (test emiz=625) 95 mg/dL 70-105 CALCIUM (BEAKER) (test oosk=570) 8.2 mg/dL 8.4-10.2 AST (SGOT) (BEAKER) (test prxx=171) 16 U/L 5-34 ALT (SGPT) (BEAKER) (test kqkb=905) 14 U/L 6-55 EGFR (BEAKER) (test emcc=3036) 92 mL/min/1.73 sq m ESTIMATED GFR IS NOT ACCURATE CREATININE CLEARANCE IN PREDICTING GLOMERULAR FILTRATION RATE. ESTIMATED GFR IS NOT APPLICABLE FOR DIALYSIS PATIENTS. CBC (HEMOGRAM ONLY)2019-06-13 05:24:00* Test Item Value Reference Range Comments WHITE BLOOD CELL COUNT (BEAKER) (test heuc=839) 11.2 K/ L 3.5-10.5 RED BLOOD CELL COUNT (BEAKER) (test pmsc=683) 4.55 M/ L 3.93-5.22 HEMOGLOBIN (BEAKER) (test kvso=073) 13.8 GM/DL 11.2-15.7 HEMATOCRIT (BEAKER) (test oxdo=530) 41.7 % 34.1-44.9 MEAN CORPUSCULAR VOLUME (BEAKER) (test ovjc=327) 91.6 fL 79.4-94.8 MEAN CORPUSCULAR HEMOGLOBIN (BEAKER) (test xyky=602) 30.3 pg 25.6-32.2 MEAN CORPUSCULAR HEMOGLOBIN CONC (BEAKER) (test wscy=652) 33.1 GM/DL 32.2-35.5 RED CELL DISTRIBUTION WIDTH (BEAKER) (test kanx=720) 14.5 % 11.7-14.4 PLATELET COUNT (BEAKER) (test cbkb=126) 134 K/CU MM 150-450 MEAN PLATELET VOLUME (BEAKER) (test rtoq=027) 11.5 fL 9.4-12.3 NUCLEATED RED BLOOD CELLS (BEAKER) (test fxxj=395) 0 /100 WBC 0-0 TROPONIN [id number] 00:40:00* Test Item Value Reference Range Comments TROPONIN I (BEAKER) (test luzh=844) 0.01 ng/mL 0.00-0.03 Troponin I (TnI) levels must be interpreted in the context of the presenting sym ptoms and the clinical findings. Elevated TnI levels indicate myocardial damage, but are not specific for ischemic heart disease. Elevated TnI levels are seen in patients with other cardiac conditions (including myocarditis and congestive h eart failure), and slight TnI elevations occur in patients with other conditions , including sepsis, renal failure, acidosis, acute neurological disease, and per sistent tachyarrhythmia.CREATINE KINASE (CK)2019-06-13 00:34:00* Test Item Value Reference Range Comments CREATINE KINASE TOTAL (BEAKER) (test bnwf=499) 63 U/L 29-200 CT, [id number] 22:36:00Reason for exam:->ABDOMINAL PAINReason for exam:-> FEVERReason for exam:->DIARRHEAIs the patient ?->NoWhat is the patient's sedation requirement?->No SedationFINAL REPORT TECHNIQUE: CT of the abdomen WITH intravenous contrast and WITH oral contrast. Dose modulation, iterative reconstruction, and/or weight-based adjustment of the mA/kV was utilized to reduce the radiation dose to as low as reasonably achievable. INDICATION: Left lower quadrant pain. COMPARISON: None. FINDINGS: LOWER THORAX: Unremarkable. HEPATOBILIARY: No focal hepatic lesions. Gallbladder is unremarkable. No biliary ductal dilatation.SPLEEN: No splenomegaly.PANCREAS: No focal masses or ductal dilatation. ADRENALS: No adrenal nodules.KIDNEYS/URETERS: No hydronephrosis, stones, or solid mass lesions. PERITONEUM/RETROPERITONEUM: No free air or fluid.LYMPH NODES: No lymphadenopath y.VESSELS: Unremarkable. GI TRACT: No bowel distention. Moderately thickened rodolfo matous wall of the ascending colon with mild pericolonic fat stranding. There ar e a few sigmoid diverticula without associated inflammation. Normal appendix. GABRIELLA PRAMOD AND SOFT TISSUES: Prior L5-S1 fusion with instrumentation. Grade 1 anterolis thesis of L5 on S1. No acute osseous abnormality. IMPRESSION: 1. Thickened edema tous wall of the descending colon with pericolonic stranding consistent with acu te colitis, possibly of infectious or inflammatory etiology. 2. Few sigmoid dive rticula without associated inflammation. Signed: Vivian Cho MDReport Verified Date/Time: 06/12/2019 22:36:43 Reading Location: [address] Transitional Read ing Room P M URINALYSIS W/ REFLEX URINE [id number] 21:53:00* Test Item Value Reference Range Comments COLOR (BEAKER) (test hnba=484) Yellow CLARITY (BEAKER) (test ylma=118) Clear SPECIFIC GRAVITY UA (BEAKER) (test itdt=478) 1.008 1.001-1.035 PH UA (BEAKER) (test oebu=011) 6.0 5.0-8.0 PROTEIN UA (BEAKER) (test sfjc=873) Negative Negative GLUCOSE UA (BEAKER) (test khqt=421) Negative Negative KETONES UA (BEAKER) (test jumv=556) 20 mg/dL Negative BILIRUBIN UA (BEAKER) (test mqyq=118) Negative Negative BLOOD UA (BEAKER) (test cgro=298) Negative Negative NITRITE UA (BEAKER) (test ksad=976) Negative Negative LEUKOCYTE ESTERASE UA (BEAKER) (test olam=048) Negative Negative UROBILINOGEN UA (BEAKER) (test qihv=316) 0.2 mg/dL 0.2-1.0 RBC UA (BEAKER) (test zwfd=471) 3 /HPF WBC UA (BEAKER) (test uron=819) 2 /HPF MUCUS (BEAKER) (test icrn=1116) Many SQUAMOUS EPITHELIAL (BEAKER) (test dgzw=760) 2 /HPF SOURCE(BEAKER) (test zuho=5598) [id number] 19:45:00* Test Item Value Reference Range Comments MAGNESIUM (BEAKER) (test tiep=908) 1.9 mg/dL 1.6-2.6 Specimen markedly hemolyzed [id number] 19:45:00* Test Item Value Reference Range Comments PHOSPHORUS (BEAKER) (test pnpl=553) 2.5 mg/dL 2.3-4.7 Specimen markedly hemolyzed BASIC METABOLIC [id number] 19:45:00* Test Item Value Reference Range Comments SODIUM (BEAKER) (test hfjh=343) 135 meq/L 136-145 POTASSIUM (BEAKER) (test dsmb=059) 5.2 meq/L 3.5-5.1 Specimen markedly hemolyzed CHLORIDE (BEAKER) (test zgge=643) 105 meq/L 98-107 CO2 (BEAKER) (test bxge=987) 21 meq/L 22-29 BLOOD UREA NITROGEN (BEAKER) (test cmmc=775) 11 mg/dL 7-21 CREATININE (BEAKER) (test nbmi=963) 0.75 mg/dL 0.57-1.25 Specimen markedly hemolyzed GLUCOSE RANDOM (BEAKER) (test mmoh=955) 89 mg/dL 70-105 CALCIUM (BEAKER) (test fnpy=871) 9.4 mg/dL 8.4-10.2 EGFR (BEAKER) (test plnj=4609) 81 mL/min/1.73 sq m ESTIMATED GFR IS NOT ACCURATE CREATININE CLEARANCE IN PREDICTING GLOMERULAR FILTRATION RATE. ESTIMATED GFR IS NOT APPLICABLE FOR DIALYSIS PATIENTS. HEPATIC FUNCTION [id number] 19:45:00* Test Item Value Reference Range Comments TOTAL PROTEIN (BEAKER) (test avvi=032) 8.1 gm/dL 6.0-8.3 Specimen markedly hemolyzed ALBUMIN (BEAKER) (test ttlq=1401) 4.3 g/dL 3.5-5.0 Specimen markedly hemolyzed BILIRUBIN TOTAL (BEAKER) (test qchc=827) 1.3 mg/dL 0.2-1.2 Specimen markedly hemolyzed BILIRUBIN DIRECT (BEAKER) (test lwxr=702) 0.4 mg/dL 0.1-0.5 Specimen markedly hemolyzed ALKALINE PHOSPHATASE (BEAKER) (test eaxe=606) 65 U/L 40-150 AST (SGOT) (BEAKER) (test dall=254) 35 U/L 5-34 Specimen markedly hemolyzed ALT (SGPT) (BEAKER) (test koof=994) 20 U/L 6-55 Specimen markedly hemolyzed [id number] 19:45:00* Test Item Value Reference Range Comments LIPASE (BEAKER) (test ziye=538) 19 U/L 8-78 BLOOD GAS, [id number] 19:27:00* Test Item Value Reference Range Comments PH VENOUS (BEAKER) (test ujzc=236) 7.34 7.32-7.42 PCO2 VENOUS (BEAKER) (test xwih=214) 50 mmHg 41-51 PO2 VENOUS (BEAKER) (test pyga=439) 26 mmHg 25-40 O2 SATURATION VENOUS (BEAKER) (test evss=446) 43.9 % 40.0-70.0 HCO3 VENOUS (BEAKER) (test mpph=767) 27 mmol/L 21-29 BASE EXCESS VENOUS (BEAKER) (test klrq=994) 0.0 mmol/L -2.0-3.0 PATIENT TEMPERATURE (BEAKER) (test rtoh=5336) 37.0 C POCT-LACTIC ACID, [id number] 19:16:00* Test Item Value Reference Range Comments POC-LACTIC ACID, VENOUS (BEAKER) (test lpft=2351) 1.9 mmol/L 0.9-1.7 TESTED AT [facility] [address] [facility] [address] PT/[id number] 19:13:00* Test Item Value Reference Range Comments PROTIME (BEAKER) (test nxzn=108) 12.8 seconds 11.9-14.2 INR (BEAKER) (test prdn=728) 1.0 <=5.9 PARTIAL THROMBOPLASTIN TIME (BEAKER) (test jmvk=678) 29.6 seconds 22.5-36.0 Effective 04/07/2019: PT Reference Range ChangeNew: 11.9-14.2 Previous: 11.7-14. 7RECOMMENDED COUMADIN/WARFARIN INR THERAPY RANGESSTANDARD DOSE: 2.0-3.0 Include s: PROPHYLAXIS for venous thrombosis, systemic embolization; TREATMENT for venou s thrombosis and/or pulmonary embolus.HIGH RISK: Target INR is 2.5-3.5 for patie nts wiht mechanical heart valves.CBC W/PLT COUNT & AUTO [id number] 19:05:00* Test Item Value Reference Range Comments WHITE BLOOD CELL COUNT (BEAKER) (test rjim=382) 14.7 K/ L 3.5-10.5 RED BLOOD CELL COUNT (BEAKER) (test bobf=132) 5.20 M/ L 3.93-5.22 HEMOGLOBIN (BEAKER) (test mtvf=947) 16.2 GM/DL 11.2-15.7 HEMATOCRIT (BEAKER) (test rocv=937) 47.5 % 34.1-44.9 MEAN CORPUSCULAR VOLUME (BEAKER) (test cmfc=853) 91.3 fL 79.4-94.8 MEAN CORPUSCULAR HEMOGLOBIN (BEAKER) (test deaa=786) 31.2 pg 25.6-32.2 MEAN CORPUSCULAR HEMOGLOBIN CONC (BEAKER) (test bped=274) 34.1 GM/DL 32.2-35.5 RED CELL DISTRIBUTION WIDTH (BEAKER) (test cwiu=218) 14.3 % 11.7-14.4 PLATELET COUNT (BEAKER) (test ofef=368) 232 K/CU MM 150-450 MEAN PLATELET VOLUME (BEAKER) (test fjjd=570) 10.8 fL 9.4-12.3 NUCLEATED RED BLOOD CELLS (BEAKER) (test xqwo=523) 0 /100 WBC 0-0 NEUTROPHILS RELATIVE PERCENT (BEAKER) (test naja=659) 72 % LYMPHOCYTES RELATIVE PERCENT (BEAKER) (test svhc=851) 19 % MONOCYTES RELATIVE PERCENT (BEAKER) (test klyl=104) 8 % EOSINOPHILS RELATIVE PERCENT (BEAKER) (test gjgs=550) 1 % BASOPHILS RELATIVE PERCENT (BEAKER) (test uwou=717) 0 % NEUTROPHILS ABSOLUTE COUNT (BEAKER) (test avqc=001) 10.56 K/ L 1.56-6.13 LYMPHOCYTES ABSOLUTE COUNT (BEAKER) (test igbq=891) 2.72 K/ L 1.18-3.74 MONOCYTES ABSOLUTE COUNT (BEAKER) (test wkqz=691) 1.12 K/ L 0.24-0.36 EOSINOPHILS ABSOLUTE COUNT (BEAKER) (test aglp=818) 0.15 K/ L 0.04-0.36 BASOPHILS ABSOLUTE COUNT (BEAKER) (test eeso=286) 0.04 K/ L 0.01-0.08 IMMATURE GRANULOCYTES-RELATIVE PERCENT (BEAKER) (test ucqq=4143) 1 % 0-1 CT, SPINE, LUMBAR, WO [id number] 10:51:00FINAL REPORT CT Lumbar spine CLINICAL HISTORY: Z98.1 TECHNIQUE: Contiguous noncontrast axial images of the lumbar spine with coronal and sagittal reformations to assess the alignment. This exam was performed according to the departmental dose optimization program which includes automated exposure control, adjustment of the mA and/or kV according to the patient size, and/or u se of an iterative reconstruction technique. COMPARISON: Lumbar CT 12/31/2018 ALEENA DINGS: Please note rudimentary ribs on the T12 vertebral body. As before, the pa tient is status post bilateral posterior spinal mirtha and pedicle screw fusion of what is considered L5-S1 with interbody metallic cages. 10 mm anterolisthesis is again seen with a decompressive laminectomy. The four pedicle screws again slig htly extend beyond the anterior vertebral body margins into the adjacent soft ti ssues. There is no interval evidence of hardware failure or loosening. The lumba r vertebral body heights are maintained. The lumbar curvature and alignment is o therwise preserved. As before, the central canal contents are not not well evalu ated at L4-L5 and L5-S1 secondary to metallic streak effect. The upper lumbar le vels do not reveal significant appearing central canal stenosis. The visualized soft tissues are grossly unremarkable. IMPRESSION: Since 12/31/2018, the CT posts urgical appearance of the lower lumbar spine is unchanged. Signed: Edel Nunez MDReport Verified Date/Time: 04/26/2019 10:51:31 Reading Location: [facility] C013V Neuro Reading Room Electronically signed by: EDEL NUNEZ M.D. on 04/10 10:51 AM NEEDLE EMG, 2 [id number] 15:56:00 INTRAOPERATIVE MONITORING REPORT Patient name: Melinda Wiggins [facility] Surgery Date: 12/08/2018 [place] Pro: [id number] Monitoring began at 1127 and ended at 1446 Surgeon: Turner Hoang MD Examining Physician : Valeri Frederick MD Procedure: TLIF L5-S1 Stimulation Parameters: Pedicle/Cortical screws individually stimulated by the Surgeon Rate 2.1Hz, Intensity 0-20mA, Duration 0.2ms Filters 20-2KHz, Notch Off Free-running and Triggered EMG of Tibialis Anterior (L4-5) and Lateral Gastrocnemius (L5-S2) muscle groups. Description : Intraoperative neurophy siological monitoring was performed using a combination of free-running and Trig gered EMG and Free-running EMGs. A real-time connection with the examining neuro logist was established and maintained throughout the operative procedure by the monitoring technologist. Pedicle/Cortical Screw Triggered EMG was performed foll owing the placement of screw via a sterile Prass probe held by the surgeon. The resulting intensity values required to elicit a response from each placement wer e reported to the surgeon. Free-running EMG of L4-S2 innervated muscle groups wa s monitored continuously throughout the operative procedure with some sporadic n eurotonic emg activity that was reported to the surgeon. EMG quiet in all muscle groups at closing. Surgeon aware of firing at closing and of responses througho ut case. Valeri Frederick MD [id number] , SPINE, LUMBAR, 2 OR 3 [id number] 10:34:00Reason for Exam:->S/P lumbar fusionFINAL REPORT Exam: Lumbar spine AP lateral History: Back pain Comparison: None. Findings: No acute fracture. Fusion of L5-S1 with matos spedicular screws and interbody cage. Hardware intact. Stable anterolisthesis of L5 on S1. Impression: No acute osseous abnormality Fusion of L5-S1. No complica tion. Signed: Edel Jimenez MDReport Verified Date/Time: 03/01/2019 10:34:03 Reading Location: [facility] Reading Room [address] [place] [address] Electronically sign ed by: Edel Jimenez on 03/01/2019 10:34 AM AFB CULTURE + [id number] 13:22:00* Test Item Value Reference Range Comments CULTURE (BEAKER) (test oecj=8492) No acid-fast bacilli isolated in 42 days AFB SMEAR (BEAKER) (test tcti=906) No acid fast bacilli seen FUNGUS CULTURE + [id number] 17:00:00* Test Item Value Reference Range Comments CULTURE (BEAKER) (test glzx=8799) No fungus isolated in 28 days FUNGUS SMEAR (BEAKER) (test wqxa=0663) No fungi seen TISSUE [id number] 14:27:00Surgical Pathology Report Case: [id number] Authorizing Provider: Turner Hoang MD Collected: 01/01/2019 1555 Ordering Location: [address] Received: 01/04/2019 0834 Service Pathologist: Dhruv Yao MD Specimen: Spine, Lumbar, Lumbar skin and subcutaneous tissue SKIN, LUMBAR REGION, EXCISION:DERMAL SCARRING WITH EMBEDDED SUTURE AND FOREIGN BODY GIANT CELL REACTIONDERMAL ABSCESSORGANIZING FAT NECROSIS IN HYPODERMIS Signing Pathologist Direct Phone Line: [phone] signed by Dhruv Yao MD on 01/19/2019 at 2:27 PMStains for bacterial organisms are negative.[id number]; [id number] dehiscence Lumbar skin and subcutaneous tissue The specimen is received in one part labeled with the patient's information and accession number. Received labeled "lumbar spine skin and subcutaneous tissue" is an 8.5 x 1 cm ellipse of eaton-white skin excised to a depth of 1.7 cm. The skin surface bears a 7.5 cm partially healed incision wound. The specimen is serially sectioned along the short axis to reveal a eaton-red to eaton-yellow cut surface with soft, grossly purulent, soft tissue below the skin surface. Shoe Stamper sections are submitted in cassettes A1 through A3. JY/ew Perform edThe interpretation of this case included the use of immunohistochemistry or sp ecial stains. Immunohistochemistry technical testing was performed at [facility], Pathology Laboratory where it was developed and its perf ormance characteristics were determined. It has not been cleared or approved by the U.S. Food and Drug Administration. The FDA has determined that such clearanc e or approval is not necessary. The test is used for clinical purposes. It shoul d not be regarded as investigational or for research. This laboratory is certifi ed under the Clinical Laboratory Improvement Amendments of 1988 (CLIA-88) as dulce lified to perform high complexity clinical laboratory testing.BLOOD CULTURE 2019-01-06 07:01:00* Test Item Value Reference Range Comments CULTURE (BEAKER) (test amxs=7564) No growth in 5 days BLOOD [id number] 07:01:00* Test Item Value Reference Range Comments CULTURE (BEAKER) (test eupm=6378) No growth in 5 days ANAEROBIC [id number] 18:09:00* Test Item Value Reference Range Comments CULTURE (BEAKER) (test pwhj=7851) No anaerobes isolated SURGICALLY OBTAINED CULTURE + GRAM [id number] 13:33:00* Test Item Value Reference Range Comments CULTURE (BEAKER) (test xzjf=9450) PSEUDOMONAS AERUGINOSA <1+ Pseudomonas aeruginosa Amikacin (test code=1) Susceptible 0-16 , Resistant <0 or >16 Aztreonam (test code=32) Susceptible 0-8 , Resistant <0 or >8 Cefepime (test code=51) Susceptible 0-8 , Resistant <0 or >8 Ceftazidime (test code=27) Susceptible 0-8 , Resistant <0 or >8 Ciprofloxacin (test code=7) Susceptible 0-1 , Resistant <0 or >1 Gentamicin (test code=18) Susceptible 0-4 , Resistant <0 or >4 Imipenem (test code=19) Susceptible 0-2 , Resistant <0 or >2 Levofloxacin (test code=22) Susceptible 0-2 , Resistant <0 or >2 Meropenem (test code=34) Susceptible 0-2 , Resistant <0 or >2 Piperacillin (test code=24) Susceptible 0-16 , Resistant <0 or >16 Piperacillin + Tazobactam (test code=29) Susceptible 0-16 , Resistant <0 or >16 Ticarcillin + Clavulanic Acid (test code=80) Susceptible 0-16 , Resistant <0 or >16 Tobramycin (test code=25) Susceptible 0-4 , Resistant <0 or >4 Trimethoprim + Sulfamethoxazole (test code=47) Susceptible 0-40 , Resistant <0 or >40 GRAM STAIN RESULT (BEAKER) (test jpkf=6060) <1+ WBCs GRAM STAIN RESULT (BEAKER) (test gqny=818644) No organisms seen BASIC METABOLIC [id number] 07:28:00* Test Item Value Reference Range Comments SODIUM (BEAKER) (test btxq=478) 140 meq/L 136-145 POTASSIUM (BEAKER) (test vohx=739) 4.0 meq/L 3.5-5.1 CHLORIDE (BEAKER) (test bopf=558) 108 meq/L 98-107 CO2 (BEAKER) (test vimh=839) 25 meq/L 22-29 BLOOD UREA NITROGEN (BEAKER) (test vstj=010) 12 mg/dL 7-21 CREATININE (BEAKER) (test imrp=558) 0.70 mg/dL 0.57-1.25 GLUCOSE RANDOM (BEAKER) (test xjzz=626) 91 mg/dL 70-105 CALCIUM (BEAKER) (test ujxn=708) 8.8 mg/dL 8.4-10.2 EGFR (BEAKER) (test hqgq=7848) 88 mL/min/1.73 sq m ESTIMATED GFR IS NOT ACCURATE CREATININE CLEARANCE IN PREDICTING GLOMERULAR FILTRATION RATE. ESTIMATED GFR IS NOT APPLICABLE FOR DIALYSIS PATIENTS. CBC W/PLT COUNT & AUTO [id number] 07:00:00* Test Item Value Reference Range Comments WHITE BLOOD CELL COUNT (BEAKER) (test dsuk=392) 7.3 K/ L 3.5-10.5 RED BLOOD CELL COUNT (BEAKER) (test kxsz=457) 3.53 M/ L 3.93-5.22 HEMOGLOBIN (BEAKER) (test ulre=908) 10.9 GM/DL 11.2-15.7 HEMATOCRIT (BEAKER) (test yaey=858) 33.6 % 34.1-44.9 MEAN CORPUSCULAR VOLUME (BEAKER) (test wypp=301) 95.2 fL 79.4-94.8 MEAN CORPUSCULAR HEMOGLOBIN (BEAKER) (test jazp=471) 30.9 pg 25.6-32.2 MEAN CORPUSCULAR HEMOGLOBIN CONC (BEAKER) (test pprw=836) 32.4 GM/DL 32.2-35.5 RED CELL DISTRIBUTION WIDTH (BEAKER) (test sptv=270) 13.7 % 11.7-14.4 PLATELET COUNT (BEAKER) (test oloq=847) 207 K/CU MM 150-450 MEAN PLATELET VOLUME (BEAKER) (test suyi=650) 10.2 fL 9.4-12.3 NUCLEATED RED BLOOD CELLS (BEAKER) (test oxer=395) 0 /100 WBC 0-0 NEUTROPHILS RELATIVE PERCENT (BEAKER) (test trdk=966) 46 % LYMPHOCYTES RELATIVE PERCENT (BEAKER) (test xkax=431) 43 % MONOCYTES RELATIVE PERCENT (BEAKER) (test mtaz=630) 8 % EOSINOPHILS RELATIVE PERCENT (BEAKER) (test maoj=776) 2 % BASOPHILS RELATIVE PERCENT (BEAKER) (test efct=417) 1 % NEUTROPHILS ABSOLUTE COUNT (BEAKER) (test yobb=774) 3.36 K/ L 1.56-6.13 LYMPHOCYTES ABSOLUTE COUNT (BEAKER) (test nthf=826) 3.13 K/ L 1.18-3.74 MONOCYTES ABSOLUTE COUNT (BEAKER) (test wihd=034) 0.56 K/ L 0.24-0.36 EOSINOPHILS ABSOLUTE COUNT (BEAKER) (test ywzo=002) 0.15 K/ L 0.04-0.36 BASOPHILS ABSOLUTE COUNT (BEAKER) (test cmxp=253) 0.04 K/ L 0.01-0.08 IMMATURE GRANULOCYTES-RELATIVE PERCENT (BEAKER) (test kijm=7543) 0 % 0-1 BASIC METABOLIC [id number] 07:28:00* Test Item Value Reference Range Comments SODIUM (BEAKER) (test zgwt=454) 137 meq/L 136-145 POTASSIUM (BEAKER) (test dzui=823) 4.9 meq/L 3.5-5.1 Specimen moderately hemolyzed CHLORIDE (BEAKER) (test xqrw=621) 107 meq/L 98-107 CO2 (BEAKER) (test lvkm=887) 22 meq/L 22-29 BLOOD UREA NITROGEN (BEAKER) (test saey=622) 9 mg/dL 7-21 CREATININE (BEAKER) (test ppny=240) 0.65 mg/dL 0.57-1.25 Specimen moderately hemolyzed GLUCOSE RANDOM (BEAKER) (test ajzo=911) 139 mg/dL 70-105 CALCIUM (BEAKER) (test wrht=300) 8.8 mg/dL 8.4-10.2 EGFR (BEAKER) (test acwl=0925) 95 mL/min/1.73 sq m ESTIMATED GFR IS NOT ACCURATE CREATININE CLEARANCE IN PREDICTING GLOMERULAR FILTRATION RATE. ESTIMATED GFR IS NOT APPLICABLE FOR DIALYSIS PATIENTS. CBC W/PLT COUNT & AUTO [id number] 06:21:00* Test Item Value Reference Range Comments WHITE BLOOD CELL COUNT (BEAKER) (test cdfd=396) 8.6 K/ L 3.5-10.5 RED BLOOD CELL COUNT (BEAKER) (test xsfe=270) 3.70 M/ L 3.93-5.22 HEMOGLOBIN (BEAKER) (test acyj=441) 11.4 GM/DL 11.2-15.7 HEMATOCRIT (BEAKER) (test wbxl=976) 35.5 % 34.1-44.9 MEAN CORPUSCULAR VOLUME (BEAKER) (test idro=235) 95.9 fL 79.4-94.8 MEAN CORPUSCULAR HEMOGLOBIN (BEAKER) (test tfls=489) 30.8 pg 25.6-32.2 MEAN CORPUSCULAR HEMOGLOBIN CONC (BEAKER) (test xeax=604) 32.1 GM/DL 32.2-35.5 RED CELL DISTRIBUTION WIDTH (BEAKER) (test ebtk=228) 13.3 % 11.7-14.4 PLATELET COUNT (BEAKER) (test dqww=359) 213 K/CU MM 150-450 MEAN PLATELET VOLUME (BEAKER) (test fpxc=823) 10.8 fL 9.4-12.3 NUCLEATED RED BLOOD CELLS (BEAKER) (test kfrr=861) 0 /100 WBC 0-0 NEUTROPHILS RELATIVE PERCENT (BEAKER) (test djqe=534) 83 % LYMPHOCYTES RELATIVE PERCENT (BEAKER) (test frru=801) 13 % MONOCYTES RELATIVE PERCENT (BEAKER) (test pmkw=748) 4 % EOSINOPHILS RELATIVE PERCENT (BEAKER) (test lxop=139) 0 % BASOPHILS RELATIVE PERCENT (BEAKER) (test lgvq=068) 0 % NEUTROPHILS ABSOLUTE COUNT (BEAKER) (test pdia=278) 7.10 K/ L 1.56-6.13 LYMPHOCYTES ABSOLUTE COUNT (BEAKER) (test hgsk=384) 1.11 K/ L 1.18-3.74 MONOCYTES ABSOLUTE COUNT (BEAKER) (test ykuf=778) 0.33 K/ L 0.24-0.36 EOSINOPHILS ABSOLUTE COUNT (BEAKER) (test dvbq=866) 0.00 K/ L 0.04-0.36 BASOPHILS ABSOLUTE COUNT (BEAKER) (test fwlk=093) 0.02 K/ L 0.01-0.08 IMMATURE GRANULOCYTES-RELATIVE PERCENT (BEAKER) (test tvxh=2246) 0 % 0-1 [id number] 00:52:00* Test Item Value Reference Range Comments PROTIME (BEAKER) (test ztpp=708) 12.9 seconds 11.7-14.7 INR (BEAKER) (test bdlo=641) 1.0 <=5.9 PARTIAL THROMBOPLASTIN TIME (BEAKER) (test qmuv=559) 28.0 seconds 22.5-36.0 RECOMMENDED COUMADIN/WARFARIN INR THERAPY RANGESSTANDARD DOSE: 2.0 - 3.0 Inclu angie: PROPHYLAXIS for venous thrombosis, systemic embolization; TREATMENT for ed ous thrombosis and/or pulmonary embolus.HIGH RISK: Target INR is 2.5-3.5 for pat ients with mechanical heart valves.URINALYSIS W/ REFLEX URINE [id number] 00:01:00* Test Item Value Reference Range Comments COLOR (BEAKER) (test vtvy=501) Light Yellow CLARITY (BEAKER) (test pkkv=040) Clear SPECIFIC GRAVITY UA (BEAKER) (test wqmf=780) 1.006 1.001-1.035 PH UA (BEAKER) (test zgzn=714) 5.5 5.0-8.0 PROTEIN UA (BEAKER) (test lrql=429) Negative Negative GLUCOSE UA (BEAKER) (test fcyk=055) Negative Negative KETONES UA (BEAKER) (test aata=184) Negative Negative BILIRUBIN UA (BEAKER) (test nucj=806) Negative Negative BLOOD UA (BEAKER) (test rlqx=478) Negative Negative NITRITE UA (BEAKER) (test jyem=469) Negative Negative LEUKOCYTE ESTERASE UA (BEAKER) (test clyd=842) Negative Negative UROBILINOGEN UA (BEAKER) (test bvur=562) 0.2 mg/dL 0.2-1.0 RBC UA (BEAKER) (test sttd=219) < /HPF WBC UA (BEAKER) (test kqpp=102) < /HPF BACTERIA (BEAKER) (test phbc=405) Occasional MUCUS (BEAKER) (test gedt=2558) Rare SQUAMOUS EPITHELIAL (BEAKER) (test iqaw=868) 1 /HPF AMORPHOUS CRYSTALS (BEAKER) (test bnev=0706) Rare SOURCE(BEAKER) (test nvem=7492) [id number] 00:01:00* Test Item Value Reference Range Comments PHOSPHORUS (BEAKER) (test bbok=388) 3.4 mg/dL 2.3-4.7 [id number] 00:01:00* Test Item Value Reference Range Comments MAGNESIUM (BEAKER) (test pxsw=316) 2.0 mg/dL 1.6-2.6 BASIC METABOLIC [id number] 00:01:00* Test Item Value Reference Range Comments SODIUM (BEAKER) (test spds=863) 137 meq/L 136-145 POTASSIUM (BEAKER) (test vljp=665) 3.9 meq/L 3.5-5.1 CHLORIDE (BEAKER) (test kphv=074) 106 meq/L 98-107 CO2 (BEAKER) (test nrsu=381) 21 meq/L 22-29 BLOOD UREA NITROGEN (BEAKER) (test jjhf=595) 10 mg/dL 7-21 CREATININE (BEAKER) (test yzky=992) 0.74 mg/dL 0.57-1.25 GLUCOSE RANDOM (BEAKER) (test sxvb=320) 113 mg/dL 70-105 CALCIUM (BEAKER) (test hzto=120) 9.0 mg/dL 8.4-10.2 EGFR (BEAKER) (test nuil=1608) 82 mL/min/1.73 sq m ESTIMATED GFR IS NOT ACCURATE CREATININE CLEARANCE IN PREDICTING GLOMERULAR FILTRATION RATE. ESTIMATED GFR IS NOT APPLICABLE FOR DIALYSIS PATIENTS. C-REACTIVE [id number] 00:01:00* Test Item Value Reference Range Comments C-REACTIVE PROTEIN (BEAKER) (test jbpn=527) 0.70 mg/dL 0.00-0.50 CBC W/PLT COUNT & AUTO [id number] 23:42:00* Test Item Value Reference Range Comments WHITE BLOOD CELL COUNT (BEAKER) (test idgw=969) 9.7 K/ L 3.5-10.5 RED BLOOD CELL COUNT (BEAKER) (test vwom=763) 3.98 M/ L 3.93-5.22 HEMOGLOBIN (BEAKER) (test btey=961) 12.1 GM/DL 11.2-15.7 HEMATOCRIT (BEAKER) (test annh=373) 38.3 % 34.1-44.9 MEAN CORPUSCULAR VOLUME (BEAKER) (test zjwj=553) 96.2 fL 79.4-94.8 MEAN CORPUSCULAR HEMOGLOBIN (BEAKER) (test qffu=194) 30.4 pg 25.6-32.2 MEAN CORPUSCULAR HEMOGLOBIN CONC (BEAKER) (test slkq=370) 31.6 GM/DL 32.2-35.5 RED CELL DISTRIBUTION WIDTH (BEAKER) (test rstq=030) 13.5 % 11.7-14.4 PLATELET COUNT (BEAKER) (test pehh=980) 218 K/CU MM 150-450 MEAN PLATELET VOLUME (BEAKER) (test bebl=670) 10.4 fL 9.4-12.3 NUCLEATED RED BLOOD CELLS (BEAKER) (test vxiw=779) 0 /100 WBC 0-0 NEUTROPHILS RELATIVE PERCENT (BEAKER) (test subj=824) 52 % LYMPHOCYTES RELATIVE PERCENT (BEAKER) (test grif=768) 34 % MONOCYTES RELATIVE PERCENT (BEAKER) (test pnel=866) 9 % EOSINOPHILS RELATIVE PERCENT (BEAKER) (test lhya=714) 4 % BASOPHILS RELATIVE PERCENT (BEAKER) (test lkyk=308) 1 % NEUTROPHILS ABSOLUTE COUNT (BEAKER) (test djnx=729) 5.01 K/ L 1.56-6.13 LYMPHOCYTES ABSOLUTE COUNT (BEAKER) (test oyjp=714) 3.29 K/ L 1.18-3.74 MONOCYTES ABSOLUTE COUNT (BEAKER) (test dlaa=881) 0.91 K/ L 0.24-0.36 EOSINOPHILS ABSOLUTE COUNT (BEAKER) (test auph=709) 0.40 K/ L 0.04-0.36 BASOPHILS ABSOLUTE COUNT (BEAKER) (test iycc=038) 0.05 K/ L 0.01-0.08 IMMATURE GRANULOCYTES-RELATIVE PERCENT (BEAKER) (test mwpd=4368) 0 % 0-1 CT, SPINE, LUMBAR, WO [id number] 22:00:00FINAL REPORT CT Lumbar spine CLINICAL HISTORY: concern for lumbar wound infection TECHNIQUE: Contiguous noncontrast axial images of the lumbar spine with coronal and sagittal reformations to assess the alignment. This exam was performed according to the departmental dose optimization program which includes automated exposure control, adjustment of the mA and/or kV according to the patient size, and/or use of an iterative reconstruction technique. COMPARISON: None FINDINGS: The last well-formed disc is designated as L5-S1 for the purposes of this report. Diminutive right rib at T12. Vertebral bodies were numbered using this convention. Postsurgical changes of posterior instrumented lumbar spine fusion and decompression of L5-S1 with bilateral rods and pedicle screws and two interbody body cages. Again seen in the four pedicle screws all extend slightly beyond the anterior margin of the respective vertebral bodies into the vertebral soft tissues. Unchanged grade 1 anterolisthesis of L5 on S1. The lumbar curvature and alignment is otherwise maintained. The lumbar vertebral body heig hts are preserved. No lumbar spine or sacral fractures are evident. Paravertebr al soft tissues are within normal limits.Please note that the central canal cont ents L4-L5 and L5-S1 are not well evaluated due to substantial metallic streak e ffect and the lack of intrathecal contrast. In the upper lumbar spine, no signif icant appearing lumbar degenerative stenosis is seen. There are nonspecific post surgical edema changes in the posterior paraspinous muscles of the lower lumbar spine which are not significantly changed in the interval. IMPRESSION:Postsurg ical changes of posterior instrumented lumbar spine fusion and decompression of L5-S1 with no hardware complications. Unchanged nonspecific post surgical edema changes in the posterior paraspinous muscles of the lower lumbar spine. Signed: Kylie Babcock Verified Date/Time: 12/31/2018 22:00:59 Reading Lo cation: [facility] C013T Transitional Reading Room , SPINE, LUMBAR, WO CONTRAST 2018-12-25 10:45:00FINAL REPORT CT Lumbar spine CLINICAL HISTORY: M54.16 Z98.1 TECHNIQUE: Contiguous noncontrast axial images of the lumbar spine with coronal and sagittal reformations to assess the alignment. This exam was performed according to the departmental dose optimization program which includes automated exposure control, adjustment of the mA and/or kV according to the patient size, and/or use of an iterative reconstruction technique. COMPARISON: Plain film 12/09/2018 FINDINGS: As before, the patient is status post bilateral spinal mirtha and pedicle screw fusion of L5-S1 with two interbody body cages, a decompressive laminectomy, and bilateral bone fusion graft material. The four pedicle screws all extend slightly beyond the anterior margin of the respective vertebral bodies into the vertebral soft tissues. There is 10 mm of anterolisthesis of L5-S1. The lumbar curvature and alignment is otherwise maintained. The lumbar vertebral body heights are preserved. Please note that the central canal contents L4-L5 and L5-S1 are not well evaluated due to substantial metallic streak effect and the lack of intrathecal contrast. In the upper lumbar spine, no significant appearing lumbar degenerative stenosis is seen. There are nonspecific post surgical edema changes in the posterior paraspinous muscles of the lower lumbar spine. IMPRESSION: Status post posterior spinal mirtha and pedicle screw fusion of L5-S1 with interbody metallic cages, bilateral bone fusion graft material, and decompressive laminectomies. There is 10 mm anterolisthesis of L5-S1. Signed: Edel Nunez Verified Date/Time: 12/25/2018 10:45:19 Reading Location: [facility] C013V Neuro Reading Room UE [id number] 16:40:00Surgical Pathology Report Case: [id number] Authorizing Provider: Turner Hoang MD Collected: 12/08/2018 1411 Ordering Location: [facility] PERI[facility] Received: 12/08/2018 1556 SERVICES Pathologist: Dhruv Yao MD Specimen: Disc L5-S1 VERTEBRAL COLUMN, INTERVERTEBRAL DISC, DISCECTOMY:FRAGMENTS OF FIBROCARTILAGE WITH MILD DEGENERATIVE CHANGESSMALL FRAGMENTS OF BONE Signing Pathologist Direct Phone Line: [phone] signed by Dhruv Yao MD on 12/21/2018 at 4:40 [id number]; [id number], spondylolisthesis, lumbar region Disc L5-S1The specimen is received in saline labeled with the patient's information and labeled "disc L5-S1" and consists of multiple fragments of eaton- red fibrocartilaginous tissue measuring 1.5 x 1 x 0.4 cm in aggregate, submitted entirely A1 for decalcification. CG/pl PERFORMEDBASIC METABOLIC [id number] 06:39:00* Test Item Value Reference Range Comments SODIUM (BEAKER) (test vtmv=227) 140 meq/L 136-145 POTASSIUM (BEAKER) (test awvu=301) 3.9 meq/L 3.5-5.1 CHLORIDE (BEAKER) (test jvvq=054) 107 meq/L 98-107 CO2 (BEAKER) (test payq=057) 26 meq/L 22-29 BLOOD UREA NITROGEN (BEAKER) (test lhey=817) 7 mg/dL 7-21 CREATININE (BEAKER) (test hvhn=340) 0.63 mg/dL 0.57-1.25 GLUCOSE RANDOM (BEAKER) (test wlpu=862) 92 mg/dL 70-105 CALCIUM (BEAKER) (test pedn=527) 8.6 mg/dL 8.4-10.2 EGFR (BEAKER) (test bqgc=3648) 99 mL/min/1.73 sq m ESTIMATED GFR IS NOT ACCURATE CREATININE CLEARANCE IN PREDICTING GLOMERULAR FILTRATION RATE. ESTIMATED GFR IS NOT APPLICABLE FOR DIALYSIS PATIENTS. BASIC METABOLIC [id number] 06:25:00* Test Item Value Reference Range Comments SODIUM (BEAKER) (test exxi=325) 139 meq/L 136-145 POTASSIUM (BEAKER) (test kdle=018) 3.4 meq/L 3.5-5.1 CHLORIDE (BEAKER) (test qsxr=970) 107 meq/L 98-107 CO2 (BEAKER) (test mbhc=886) 26 meq/L 22-29 BLOOD UREA NITROGEN (BEAKER) (test kjyo=158) 6 mg/dL 7-21 CREATININE (BEAKER) (test ethy=774) 0.59 mg/dL 0.57-1.25 GLUCOSE RANDOM (BEAKER) (test qmiu=515) 85 mg/dL 70-105 CALCIUM (BEAKER) (test fhxz=655) 8.3 mg/dL 8.4-10.2 EGFR (BEAKER) (test qkru=1870) 107 mL/min/1.73 sq m ESTIMATED GFR IS NOT ACCURATE CREATININE CLEARANCE IN PREDICTING GLOMERULAR FILTRATION RATE. ESTIMATED GFR IS NOT APPLICABLE FOR DIALYSIS PATIENTS. CBC W/PLT COUNT & AUTO [id number] 05:48:00* Test Item Value Reference Range Comments WHITE BLOOD CELL COUNT (BEAKER) (test dctp=818) 7.9 K/ L 3.5-10.5 RED BLOOD CELL COUNT (BEAKER) (test cahh=607) 3.36 M/ L 3.93-5.22 HEMOGLOBIN (BEAKER) (test xpcv=510) 10.5 GM/DL 11.2-15.7 HEMATOCRIT (BEAKER) (test xead=626) 32.6 % 34.1-44.9 MEAN CORPUSCULAR VOLUME (BEAKER) (test shrc=861) 97.0 fL 79.4-94.8 MEAN CORPUSCULAR HEMOGLOBIN (BEAKER) (test jpti=926) 31.3 pg 25.6-32.2 MEAN CORPUSCULAR HEMOGLOBIN CONC (BEAKER) (test qilv=269) 32.2 GM/DL 32.2-35.5 RED CELL DISTRIBUTION WIDTH (BEAKER) (test xihz=566) 14.4 % 11.7-14.4 PLATELET COUNT (BEAKER) (test zcxx=981) 162 K/CU MM 150-450 MEAN PLATELET VOLUME (BEAKER) (test hbhy=959) 11.1 fL 9.4-12.3 NUCLEATED RED BLOOD CELLS (BEAKER) (test oqlh=300) 0 /100 WBC 0-0 NEUTROPHILS RELATIVE PERCENT (BEAKER) (test axae=068) 51 % LYMPHOCYTES RELATIVE PERCENT (BEAKER) (test kvhj=777) 34 % MONOCYTES RELATIVE PERCENT (BEAKER) (test pjnw=183) 11 % EOSINOPHILS RELATIVE PERCENT (BEAKER) (test vbam=112) 3 % BASOPHILS RELATIVE PERCENT (BEAKER) (test odtx=206) 1 % NEUTROPHILS ABSOLUTE COUNT (BEAKER) (test iuts=291) 3.98 K/ L 1.56-6.13 LYMPHOCYTES ABSOLUTE COUNT (BEAKER) (test fcea=280) 2.68 K/ L 1.18-3.74 MONOCYTES ABSOLUTE COUNT (BEAKER) (test baeb=147) 0.88 K/ L 0.24-0.36 EOSINOPHILS ABSOLUTE COUNT (BEAKER) (test kght=982) 0.27 K/ L 0.04-0.36 BASOPHILS ABSOLUTE COUNT (BEAKER) (test nsac=553) 0.04 K/ L 0.01-0.08 IMMATURE GRANULOCYTES-RELATIVE PERCENT (BEAKER) (test ytho=2945) 0 % 0-1 BASIC METABOLIC [id number] 06:50:00* Test Item Value Reference Range Comments SODIUM (BEAKER) (test skpp=585) 140 meq/L 136-145 POTASSIUM (BEAKER) (test fbzo=965) 3.4 meq/L 3.5-5.1 CHLORIDE (BEAKER) (test kblt=758) 107 meq/L 98-107 CO2 (BEAKER) (test ddwq=954) 27 meq/L 22-29 BLOOD UREA NITROGEN (BEAKER) (test mwcp=996) 7 mg/dL 7-21 CREATININE (BEAKER) (test rpwa=368) 0.61 mg/dL 0.57-1.25 GLUCOSE RANDOM (BEAKER) (test dkua=270) 93 mg/dL 70-105 CALCIUM (BEAKER) (test cohi=483) 8.2 mg/dL 8.4-10.2 EGFR (BEAKER) (test jkyj=6381) 103 mL/min/1.73 sq m ESTIMATED GFR IS NOT ACCURATE CREATININE CLEARANCE IN PREDICTING GLOMERULAR FILTRATION RATE. ESTIMATED GFR IS NOT APPLICABLE FOR DIALYSIS PATIENTS. CBC W/PLT COUNT & AUTO [id number] 06:34:00* Test Item Value Reference Range Comments WHITE BLOOD CELL COUNT (BEAKER) (test sqff=203) 8.5 K/ L 3.5-10.5 RED BLOOD CELL COUNT (BEAKER) (test ewcj=928) 3.45 M/ L 3.93-5.22 HEMOGLOBIN (BEAKER) (test dftd=085) 10.7 GM/DL 11.2-15.7 HEMATOCRIT (BEAKER) (test doqw=679) 33.3 % 34.1-44.9 MEAN CORPUSCULAR VOLUME (BEAKER) (test dxew=144) 96.5 fL 79.4-94.8 MEAN CORPUSCULAR HEMOGLOBIN (BEAKER) (test djbm=483) 31.0 pg 25.6-32.2 MEAN CORPUSCULAR HEMOGLOBIN CONC (BEAKER) (test sncg=684) 32.1 GM/DL 32.2-35.5 RED CELL DISTRIBUTION WIDTH (BEAKER) (test toql=853) 14.0 % 11.7-14.4 PLATELET COUNT (BEAKER) (test znac=573) 175 K/CU MM 150-450 MEAN PLATELET VOLUME (BEAKER) (test gjvk=382) 10.6 fL 9.4-12.3 NUCLEATED RED BLOOD CELLS (BEAKER) (test dzzv=575) 0 /100 WBC 0-0 NEUTROPHILS RELATIVE PERCENT (BEAKER) (test iacw=965) 60 % LYMPHOCYTES RELATIVE PERCENT (BEAKER) (test bbme=113) 30 % MONOCYTES RELATIVE PERCENT (BEAKER) (test qtea=155) 9 % EOSINOPHILS RELATIVE PERCENT (BEAKER) (test edxj=634) 1 % BASOPHILS RELATIVE PERCENT (BEAKER) (test ctpi=004) 0 % NEUTROPHILS ABSOLUTE COUNT (BEAKER) (test xlka=235) 5.12 K/ L 1.56-6.13 LYMPHOCYTES ABSOLUTE COUNT (BEAKER) (test wbjv=121) 2.55 K/ L 1.18-3.74 MONOCYTES ABSOLUTE COUNT (BEAKER) (test gxvu=184) 0.74 K/ L 0.24-0.36 EOSINOPHILS ABSOLUTE COUNT (BEAKER) (test epwz=661) 0.06 K/ L 0.04-0.36 BASOPHILS ABSOLUTE COUNT (BEAKER) (test imxh=671) 0.03 K/ L 0.01-0.08 IMMATURE GRANULOCYTES-RELATIVE PERCENT (BEAKER) (test duni=3815) 0 % 0-1 RAD, SPINE, LUMBAR, 2 OR 3 [id number] 23:41:00Reason for exam:->s/p BILATERAL TLIF L5-S1 lumbar fusionReason for exam:->standing xrays ap/lateral FINAL REPORT EXAMINATION: AP and lateral views of the lum bar spine with the patient in the upright standing position. CLINICAL INDICATION : Lumbar spine fusion. IMPRESSION: The patient is status post orthopedic fusion at L5-S1 with placement of bilateral screws which are secured by posterior fixat ion rods. Appropriately positioned intervertebral disc spacing devices are also noted L5-S1. On the lateral view, at least one and possibly both of the screws at S1 extend past the ventral cortex of the sacrum into the adjacent pelvic soft tissues. There is mild exaggeration of normal lumbar lordosis. Cross-sectional imaging could be performed for further evaluation if warranted. Signed: Hortencia Gasca MDReport Verified Date/Time: 12/09/2018 23:41:47 Reading Location: [facility], [facility] Reading Room Electronically signed by: STAR GASCA M.D. on 12/09 11:41 PM CBC (HEMOGRAM ONLY)2018-12-09 05:47:00* Test Item Value Reference Range Comments WHITE BLOOD CELL COUNT (BEAKER) (test khjt=103) 11.9 K/ L 3.5-10.5 RED BLOOD CELL COUNT (BEAKER) (test obxj=264) 3.50 M/ L 3.93-5.22 HEMOGLOBIN (BEAKER) (test hlzr=133) 10.8 GM/DL 11.2-15.7 HEMATOCRIT (BEAKER) (test ulnt=592) 33.5 % 34.1-44.9 MEAN CORPUSCULAR VOLUME (BEAKER) (test rhnu=675) 95.7 fL 79.4-94.8 MEAN CORPUSCULAR HEMOGLOBIN (BEAKER) (test lllv=802) 30.9 pg 25.6-32.2 MEAN CORPUSCULAR HEMOGLOBIN CONC (BEAKER) (test yfyf=870) 32.2 GM/DL 32.2-35.5 RED CELL DISTRIBUTION WIDTH (BEAKER) (test ufkl=551) 13.6 % 11.7-14.4 PLATELET COUNT (BEAKER) (test ijmt=752) 166 K/CU MM 150-450 MEAN PLATELET VOLUME (BEAKER) (test dqfb=999) 10.4 fL 9.4-12.3 NUCLEATED RED BLOOD CELLS (BEAKER) (test kwuy=593) 0 /100 WBC 0-0 BASIC METABOLIC [id number] 05:37:00* Test Item Value Reference Range Comments SODIUM (BEAKER) (test dgps=929) 137 meq/L 136-145 POTASSIUM (BEAKER) (test avax=887) 4.6 meq/L 3.5-5.1 CHLORIDE (BEAKER) (test koiu=360) 106 meq/L 98-107 CO2 (BEAKER) (test uwjj=541) 25 meq/L 22-29 BLOOD UREA NITROGEN (BEAKER) (test hrtd=527) 7 mg/dL 7-21 CREATININE (BEAKER) (test chwk=925) 0.64 mg/dL 0.57-1.25 GLUCOSE RANDOM (BEAKER) (test itep=677) 127 mg/dL 70-105 CALCIUM (BEAKER) (test gylp=957) 8.2 mg/dL 8.4-10.2 EGFR (BEAKER) (test hvbv=5910) 97 mL/min/1.73 sq m ESTIMATED GFR IS NOT ACCURATE CREATININE CLEARANCE IN PREDICTING GLOMERULAR FILTRATION RATE. ESTIMATED GFR IS NOT APPLICABLE FOR DIALYSIS PATIENTS. FL, LABORER PIE BAKERY IN OR/30 MINUTE [id number] 15:20:00Reason for exam:-> LUMBAR STENOSISFINAL REPORT Intraoperative fluoroscopy films performed by the referring physician. Number of images: 3Fluoroscopic time: 14.1 seconds The films were submitted to PACS postprocedure. The radiologist was not present at the time of examination. An interpretation was not requested. The submitted images are nondiagnostic without real-time visualization. Please refer to the performing physician's dictation for all details regarding the procedure including the submitted images. The radiologist did not perform fluoroscopy. Signed: [facility]une[facility] Verified Date/Time: 12/08/2018 15:20:33 Reading Location: [facility] [id number] Consult Reading Room , LABORER PIE BAKERY IN OR/30 MINUTE [id number] 12:46:00Reason for exam:->Lumbar StenosisFINAL REPORT TECHNIQUE: 1 lateral fluoroscopic image of the lumbar spine for localization.Fluoroscopic time: 0.1 minutes. FINDINGS: The surgical pointer is at at the level of the L5 pedicle. The findings were discussed with Dr. TURNER HOANG MD in the OR who concurred with the findings. IMPRESSION: Intraoperative localization plain film as described above. Signed: Edel Nunez MDReport Verified Date/Time: 12/08/2018 12:46:58 Reading Location: [facility] Radiology Reading Room ALYSIS W/ REFLEX URINE [id number] 12:40:00* Test Item Value Reference Range Comments COLOR (BEAKER) (test sxpa=589) Yellow CLARITY (BEAKER) (test tmfk=375) Clear SPECIFIC GRAVITY UA (BEAKER) (test grcb=278) 1.018 1.001-1.035 PH UA (BEAKER) (test qzxp=282) 7.5 5.0-8.0 PROTEIN UA (BEAKER) (test ntsi=998) 10 mg/dL Negative GLUCOSE UA (BEAKER) (test vela=093) Negative Negative KETONES UA (BEAKER) (test luje=196) Negative Negative BILIRUBIN UA (BEAKER) (test wspo=102) Negative Negative BLOOD UA (BEAKER) (test smkq=958) Negative Negative NITRITE UA (BEAKER) (test sjhn=503) Negative Negative LEUKOCYTE ESTERASE UA (BEAKER) (test omag=354) Negative Negative UROBILINOGEN UA (BEAKER) (test ytzt=337) 2.0 mg/dL 0.2-1.0 RBC UA (BEAKER) (test wodr=621) 6 /HPF WBC UA (BEAKER) (test hkdq=533) 1 /HPF MUCUS (BEAKER) (test oxep=1265) Few SQUAMOUS EPITHELIAL (BEAKER) (test ggaj=054) 8 /HPF SOURCE(BEAKER) (test czen=1300) BASIC METABOLIC [id number] 11:22:00* Test Item Value Reference Range Comments SODIUM (BEAKER) (test qnbn=083) 139 meq/L 136-145 POTASSIUM (BEAKER) (test vnbj=980) 4.0 meq/L 3.5-5.1 CHLORIDE (BEAKER) (test agfc=753) 106 meq/L 98-107 CO2 (BEAKER) (test wepz=737) 28 meq/L 22-29 BLOOD UREA NITROGEN (BEAKER) (test phmi=199) 11 mg/dL 7-21 CREATININE (BEAKER) (test rfdf=642) 0.69 mg/dL 0.57-1.25 GLUCOSE RANDOM (BEAKER) (test ncse=447) 97 mg/dL 70-105 CALCIUM (BEAKER) (test zpct=232) 9.3 mg/dL 8.4-10.2 EGFR (BEAKER) (test gaxw=4776) 89 mL/min/1.73 sq m ESTIMATED GFR IS NOT ACCURATE CREATININE CLEARANCE IN PREDICTING GLOMERULAR FILTRATION RATE. ESTIMATED GFR IS NOT APPLICABLE FOR DIALYSIS PATIENTS. CBC W/PLT COUNT & AUTO [id number] 11:08:00* Test Item Value Reference Range Comments WHITE BLOOD CELL COUNT (BEAKER) (test nkyk=438) 7.1 K/ L 3.5-10.5 RED BLOOD CELL COUNT (BEAKER) (test oekv=532) 4.56 M/ L 3.93-5.22 HEMOGLOBIN (BEAKER) (test hloy=031) 14.1 GM/DL 11.2-15.7 HEMATOCRIT (BEAKER) (test qyyu=678) 43.0 % 34.1-44.9 MEAN CORPUSCULAR VOLUME (BEAKER) (test ytqm=474) 94.3 fL 79.4-94.8 MEAN CORPUSCULAR HEMOGLOBIN (BEAKER) (test cqow=334) 30.9 pg 25.6-32.2 MEAN CORPUSCULAR HEMOGLOBIN CONC (BEAKER) (test cifk=858) 32.8 GM/DL 32.2-35.5 RED CELL DISTRIBUTION WIDTH (BEAKER) (test muwo=798) 13.3 % 11.7-14.4 PLATELET COUNT (BEAKER) (test cxdq=898) 219 K/CU MM 150-450 MEAN PLATELET VOLUME (BEAKER) (test uxwd=013) 10.6 fL 9.4-12.3 NUCLEATED RED BLOOD CELLS (BEAKER) (test catt=522) 0 /100 WBC 0-0 NEUTROPHILS RELATIVE PERCENT (BEAKER) (test njoi=982) 50 % LYMPHOCYTES RELATIVE PERCENT (BEAKER) (test qbsg=010) 36 % MONOCYTES RELATIVE PERCENT (BEAKER) (test lrrv=236) 9 % EOSINOPHILS RELATIVE PERCENT (BEAKER) (test wevx=627) 4 % BASOPHILS RELATIVE PERCENT (BEAKER) (test fbpv=850) 1 % NEUTROPHILS ABSOLUTE COUNT (BEAKER) (test gacu=930) 3.51 K/ L 1.56-6.13 LYMPHOCYTES ABSOLUTE COUNT (BEAKER) (test yjxj=382) 2.57 K/ L 1.18-3.74 MONOCYTES ABSOLUTE COUNT (BEAKER) (test gztz=749) 0.61 K/ L 0.24-0.36 EOSINOPHILS ABSOLUTE COUNT (BEAKER) (test giio=872) 0.31 K/ L 0.04-0.36 BASOPHILS ABSOLUTE COUNT (BEAKER) (test cday=235) 0.05 K/ L 0.01-0.08 IMMATURE GRANULOCYTES-RELATIVE PERCENT (BEAKER) (test ycfh=8158) 0 % 0-1 [id number] 13:25:00* Test Item Value Reference Range Comments PARTIAL THROMBOPLASTIN TIME (BEAKER) (test fijd=639) 29.8 seconds 22.5-36.0 PROTHROMBIN TIME/[id number] 13:24:00* Test Item Value Reference Range Comments PROTIME (BEAKER) (test fpei=638) 13.3 seconds 11.7-14.7 INR (BEAKER) (test aicm=450) 1.0 <=5.9 RECOMMENDED COUMADIN/WARFARIN INR THERAPY RANGESSTANDARD DOSE: 2.0 - 3.0 Inclu angie: PROPHYLAXIS for venous thrombosis, systemic embolization; TREATMENT for ed ous thrombosis and/or pulmonary embolus.HIGH RISK: Target INR is 2.5-3.5 for pat ients with mechanical heart valves.RAD, CHEST, 2 [id number] 12:48:00Reason for exam:->Spondylolysis, lumbar regionFINAL REPORT Chest, PA and lateral. History: Lumbar spondylolysis. Comparison: None available. Discussion: The cardiomediastinal silhouette and pulmonary vasculature are within normal limits. The lungs are clear without evidence of consolidation or effusion. There are no acute osseous abnormalities. The soft tissues are unremarkable. IMPRESSION: No acute cardiopulmonary abnormality. Signed: Colleen Tripathi MDReport Verified Date/Time: 11/26/2018 12:48:55 Reading Location: [address] Radiology Reading Room
[2019-07-24] MEDS ORDERED: NAPROSYN500 MG PO (19:36)
[2019-07-24] MEDS ORDERED: AUGMENTIN 875-1 EACH PO (19:36)
[2019-07-24] MEDS ORDERED: TESSALON PERLE100 MG PO (19:45)
[2019-07-24] MEDS ORDERED: CEFDINIR300 MG PO ×2 (19:45→19:46)
[2019-07-24 20:16] VITALS: BP 120/58
--- NOTE | 2019-07-24 20:21 | Diagnostic Imaging Report ---
EXAMINATION: CXR 2 VIEW - HOPD INDICATION: Congestion, fever, headache COMPARISON: None FINDINGS: TUBES and LINES: None. LUNGS: Lungs are well inflated. Lungs are clear. There is no evidence of pneumonia or pulmonary edema. PLEURA: No pleural effusion or pneumothorax. HEART AND MEDIASTINUM: The cardiomediastinal silhouette is unremarkable. BONES AND SOFT TISSUES: No acute osseous lesion. Soft tissues are unremarkable. UPPER ABDOMEN: No free air under the diaphragm. IMPRESSION: No acute radiographic thoracic abnormality. Signed by: Colt Smith DO on 07/24/2019 8:18 PM
== END 2019-07-24 20:20 | disposition home or self-care (01) ==
LOC: FSED 18:28
DX: J01.00 Acute maxillary sinusitis, unspecified (principal)
CPT/HCPCS: 71046; 87400; 99283